=== PATIENT | female | born 1935 | race Caucasian/White ===

== ENCOUNTER 2016-09-30 15:09 | Inpatient (IN) | payer MEDICARE, OTHER ==
[~2016-09-30] VITALS: Ht 165.1 cm; Wt 67.1 kg
[~2016-09-30 15:09] MED LIST: ALBUT2 INH; AMLO10TA4 PO; CARV3.12 PO; DOCU-270 PO; FLUT16SP2 NS; FLUT1DIS5 IH; IPRA0.2S49 IH; LORA10CA PO; MIDO5TAB PO; MULT1CAP34 PO; OMEP20CA4 PO
[2016-09-30] MEDS ORDERED: WATER FOR INJECTION,STERILE 10 ML ONE (16:05)
[2016-09-30] MEDS ORDERED: OLANZAPINE 10 MG VIAL IM ONE ×2 (16:05→16:30)
[2016-09-30 16:40] LABS: BASOPHILS # (AUTO) 0.1 /CMM (0.0-0.2); BASOPHILS % (AUTO) 0.7 % (0.0-2.0); DIFF TOTAL % 100 %; EOSINOPHILS # (AUTO) 0.7 /CMM (0.0-0.7); EOSINOPHILS % (AUTO) 5.8 % (0.0-6.0); HEMATOCRIT 37 % (33-45); LYMPHOCYTES # (AUTO) 3.1 /CMM (0.8-4.8); LYMPHOCYTES % (AUTO) 25.7 % (20.0-44.0); MEAN CORPUSCULAR HEMOGLOBIN 29 PG (26.0-33.0); MEAN CORPUSCULAR HGB CONC 32 g/dl (31.0-36.0); MEAN CORPUSCULAR VOLUME 89 fL (82-100); MONOCYTES # (AUTO) 0.9 /CMM (0.1-1.30); MONOCYTES % (AUTO) 7.7 % (2.0-12.0); NEUTROPHILS # (AUTO) 7.4 /CMM (1.8-8.9); NEUTROPHILS % (AUTO) 60.1 % (43.0-81.0); PLATELET COUNT (AUTO) 372 /CMM (150-450); RED BLOOD CELL COUNT(AUTO) 4.18 MIL/uL (4.0-5.2); WHITE BLOOD COUNT (AUTO) 12.2 K/uL (4.3-11.0)
[2016-09-30 16:48] LABS: ACETAMINOPHEN 2 ug/ml (10-30); ALANINE AMINOTRANSFERASE 17 U/L (12-78); ALBUMIN 3.1 g/dL (3.4-5.0); ANION GAP 14 (5-14); ASPARTATE AMINOTRANSFERASE 13 U/L (15-37); BILIRUBIN,DIRECT 0.1 mg/dL (0.0-0.2); BILIRUBIN,TOTAL 0.2 mg/dL (0.2-1.0); CALCIUM, SERUM 9.3 mg/dL (8.5-10.1); CARBON DIOXIDE 25 mmol/L (21-32); CHLORIDE 109 mmol/L (98-107); CREATININE 2.1 mg/dL (0.6-1.3); GLUCOSE 107 mg/dL (74-106); INDIRECT BILIRUBIN 0.1 mg/dL (0.0-1.1); POTASSIUM 3.9 mmol/L (3.5-5.1); SODIUM SERUM 144 mmol/L (136-145); UREA NITROGEN, BLOOD 23 mg/dL (7-18)
[2016-09-30 16:50] LABS: SALICYLATE 1.3 mg/dL (2.8-20.0)
[2016-09-30 17:00] LABS: KETONES,URINE Trace (NEGATIVE); LEUKOCYTE ESTERASE ,URINE Large (NEGATIVE); PH,URINE 5.5 (5.0-8.0)
[2016-09-30 17:04] LABS: ADD UA MICROSCOPIC YES
[2016-09-30 17:19] LABS: CANNABINOID, URINE NEGATIVE (NEGATIVE); PHENCYCLIDINE SCREEN,URINE NEGATIVE (NEGATIVE)
[2016-09-30] MEDS ORDERED: LORAZEPAM INJ 2 MG/ML VIAL ONE (17:28)
[2016-09-30 17:29] LABS: ADD URINE CULTURE YES; WBC,URINE TOO NUMEROUS TO COUN /HPF (0-3)
[2016-09-30] MEDS ORDERED: LORAZEPAM INJ 2 MG/ML VIAL IV ONE (17:30)
[2016-09-30] MEDS ORDERED: SENN8.6T6 PO (18:02)
[2016-09-30] MEDS ORDERED: POTA10TA15 PO (18:02)
[2016-09-30] MEDS ORDERED: ECON15CR2 TP (18:02)
[2016-09-30] MEDS ORDERED: MAG30ORA PO (18:02)
[2016-09-30] MEDS ORDERED: MULT-659 PO (18:02)
[2016-09-30] MEDS ORDERED: LEVO25TA9 PO (18:02)
[2016-09-30] MEDS ORDERED: SIMV20TA6 PO (18:02)
[2016-09-30] MEDS ORDERED: CALC-108 PO (18:02)
[2016-09-30] MEDS ORDERED: NITR0.4T6 SL (18:02)
[2016-09-30] MEDS ORDERED: ASCO500T9 PO (18:02)
[2016-09-30] MEDS ORDERED: MELA3TAB PO (18:02)
[2016-09-30] MEDS ORDERED: ACET-868 PO (18:02)
[2016-09-30] MEDS ORDERED: LORA0.5T PO (18:02)
[2016-09-30] MEDS ORDERED: BISA10SU8 RC (18:02)
[2016-09-30] MEDS ORDERED: NA P133E RC (18:02)
[2016-09-30] MEDS ORDERED: POLY15DR57 EACHEYE (18:02)
[2016-09-30] MEDS ORDERED: CLON0.1T PO (18:02)
[2016-09-30] MEDS ORDERED: PARO10TA26 PO (18:02)
[2016-09-30] MEDS ORDERED: ACET-2605 PO ×2 (18:02)
[2016-09-30] MEDS ORDERED: MAGN400O6 PO (18:02)
[2016-09-30] MEDS ORDERED: LEVOFLOXACIN (500MG) 500 MG TABLET ONE (18:57)
[2016-09-30] MEDS: LEVOFLOXACIN (500MG) 500 MG TABLET PO SCH ×2 (19:00→22:38)
[2016-09-30] MEDS ORDERED: LEVOFLOXACIN 500 MG /D5W 100ML 500 MG/100 ML PIGGYBACK IV ONE (19:00)
[2016-09-30 19:45] VITALS: BP 100/53
[2016-09-30] MEDS ORDERED: ACETAMINOPHEN 325 MG TABLET PO PRN ×2 (21:00→21:30)
[2016-09-30] MEDS ORDERED: NITROGLYCERIN 0.4 MG/TAB BOTTLE SL PRN (21:00)
[2016-09-30] MEDS ORDERED: MAGNESIUM HYDROXIDE 30 ML UDC PO PRN ×2 (21:00→21:30)
[2016-09-30] MEDS ORDERED: CLONIDINE HCL 0.1 MG TABLET PO PRN (21:00)
[2016-09-30] MEDS ORDERED: NA PHOS,M-B/NA PHOS,DI-BA 1 EA ENEMA RC PRN (21:00)
[2016-09-30] MEDS ORDERED: BISACODYL SUPP (10 MG) 10 MG/SUPP.RECT SUPP.RECT RC PRN (21:00)
[2016-09-30] MEDS ORDERED: ACETAMINOPHEN ES 500 MG TABLET PO SCH ×2 (21:00)
[2016-09-30] MEDS ORDERED: MAG HYDROX/AL HYDROX/SIMETH 30 ML UDC PO PRN ×2 (21:00→21:30)
[2016-09-30] MEDS ORDERED: HOME MED MISCELLANEOUS PO SCH (22:00)
[2016-09-30] MEDS: SENNOSIDES 8.6 MG TABLET PO SCH (22:39)
[2016-09-30] MEDS: SIMVASTATIN 20 MG TABLET PO SCH (22:39)
[2016-10-01 07:51] LABS: BASOPHILS # (AUTO) 0.1 /CMM (0.0-0.2); BASOPHILS % (AUTO) 0.5 % (0.0-2.0); DIFF TOTAL % 100 %; EOSINOPHILS # (AUTO) 0.8 /CMM (0.0-0.7); HEMATOCRIT 35 % (33-45); HEMOGLOBIN 11.3 g/dL (11.5-14.8); LYMPHOCYTES # (AUTO) 2.5 /CMM (0.8-4.8); LYMPHOCYTES % (AUTO) 22.6 % (20.0-44.0); MEAN CORPUSCULAR HEMOGLOBIN 29 PG (26.0-33.0); MEAN CORPUSCULAR HGB CONC 32 g/dl (31.0-36.0); MEAN CORPUSCULAR VOLUME 90 fL (82-100); MONOCYTES # (AUTO) 0.8 /CMM (0.1-1.30); MONOCYTES % (AUTO) 7.5 % (2.0-12.0); NEUTROPHILS % (AUTO) 62.4 % (43.0-81.0); PLATELET COUNT (AUTO) 311 /CMM (150-450); RED BLOOD CELL COUNT(AUTO) 3.87 MIL/uL (4.0-5.2); WHITE BLOOD COUNT (AUTO) 11.2 K/uL (4.3-11.0)
[2016-10-01 08:00] VITALS: BP 150/90
[2016-10-01 08:12] LABS: ALBUMIN 2.6 g/dL (3.4-5.0); BILIRUBIN,TOTAL 0.2 mg/dL (0.2-1.0); CALCIUM, SERUM 9.3 mg/dL (8.5-10.1); CREATININE 2.1 mg/dL (0.6-1.3); POTASSIUM 4.1 mmol/L (3.5-5.1); TOTAL PROTEIN, SERUM 6.2 g/dL (6.4-8.2)
[2016-10-01] MEDS: LEVOTHYROXINE SODIUM 25 MCG TABLET PO SCH (08:39)
[2016-10-01] MEDS ORDERED: FLUTICASONE/SALMETEROL DISKUS IH SCH (09:00)
[2016-10-01] MEDS: ECONAZOLE NITRATE 15 GM TUBE TP SCH (09:00)
[2016-10-01] MEDS: MIDODRINE HCL (5MG) 5 MG TABLET PO SCH ×2 (09:18→17:10)
[2016-10-01] MEDS: AMLODIPINE BESYLATE 10 MG TABLET PO SCH (09:18)
[2016-10-01] MEDS: MULTIVIT, IRON, MIN NO. 8, FA 1 TAB TABLET PO SCH (09:18)
[2016-10-01] MEDS: DOCUSATE SODIUM 100 MG CAPSULE PO SCH ×2 (09:18→17:10)
[2016-10-01] MEDS: CARVEDILOL 3.125 MG TABLET PO SCH ×2 (09:18→17:10)
[2016-10-01] MEDS: LORATADINE 10 MG TABLET PO SCH (09:18)
[2016-10-01] MEDS: POTASSIUM CHLORIDE 10 MEQ TABLET.SA PO SCH (09:18)
[2016-10-01] MEDS: ASCORBIC ACID 500 MG TABLET PO SCH (09:18)
[2016-10-01] MEDS: PANTOPRAZOLE 40 MG TABLET.DR PO SCH (09:18)
[2016-10-01] MEDS: POLYVINYL ALCOHOL 15 ML BOTTLE EACHEYE SCH ×2 (09:24→17:11)
[2016-10-01] MEDS: FLUTICASONE/SALMETEROL DISKUS IH SCH ×2 (09:24→17:11)
[2016-10-01] MEDS ORDERED: AMOXICILLIN TRIHYDRATE 500 MG CAPSULE PO SCH (13:00)
[2016-10-01] MEDS: ACETAMINOPHEN ES 500 MG TABLET PO PRN ×2 (13:31→21:56)
[2016-10-01] MEDS: CALCIUM CARB 600MG /VIT D 1 EACH TABLET PO SCH (13:31)
[2016-10-01] MEDS: FLUTICASONE PROPIONATE 16 GM BOTTLE NS SCH (13:31)
[2016-10-01] MEDS: AMOXICILLIN TRIHYDRATE 250 MG CAPSULE PO SCH ×2 (14:57→22:12)
[2016-10-01 16:00] VITALS: BP 115/54
[2016-10-01] MEDS: DIVALPROEX SODIUM 125 MG CAP.SPRINK PO SCH (17:09)
[2016-10-01 20:00] VITALS: BP 105/58
[2016-10-01] MEDS: SIMVASTATIN 20 MG TABLET PO SCH (22:10)
[2016-10-01] MEDS: PAROXETINE HCL 10 MG TABLET PO SCH (22:10)
[2016-10-01] MEDS: SENNOSIDES 8.6 MG TABLET PO SCH (22:10)
[2016-10-02] MEDS: AMOXICILLIN TRIHYDRATE 250 MG CAPSULE PO SCH ×3 (05:50→21:00)
[2016-10-02] MEDS: ACETAMINOPHEN ES 500 MG TABLET PO PRN (05:50)
[2016-10-02 08:00] VITALS: BP 130/92
[2016-10-02] MEDS: CARVEDILOL 3.125 MG TABLET PO SCH ×2 (08:08→17:23)
[2016-10-02] MEDS: MIDODRINE HCL (5MG) 5 MG TABLET PO SCH ×2 (08:08→17:23)
[2016-10-02] MEDS: ASCORBIC ACID 500 MG TABLET PO SCH (08:08)
[2016-10-02] MEDS: MULTIVIT, IRON, MIN NO. 8, FA 1 TAB TABLET PO SCH (08:08)
[2016-10-02] MEDS: AMLODIPINE BESYLATE 10 MG TABLET PO SCH (08:09)
[2016-10-02] MEDS: LORATADINE 10 MG TABLET PO SCH (08:09)
[2016-10-02] MEDS: ECONAZOLE NITRATE 15 GM TUBE TP SCH (08:09)
[2016-10-02] MEDS: POTASSIUM CHLORIDE 10 MEQ TABLET.SA PO SCH (08:09)
[2016-10-02] MEDS: DIVALPROEX SODIUM 125 MG CAP.SPRINK PO SCH ×3 (08:09→20:13)
[2016-10-02] MEDS: PANTOPRAZOLE 40 MG TABLET.DR PO SCH (08:09)
[2016-10-02] MEDS: DOCUSATE SODIUM 100 MG CAPSULE PO SCH ×2 (08:09→17:22)
[2016-10-02] MEDS: LEVOTHYROXINE SODIUM 25 MCG TABLET PO SCH (08:09)
[2016-10-02] MEDS: CALCIUM CARB 600MG /VIT D 1 EACH TABLET PO SCH (08:09)
[2016-10-02] MEDS: FLUTICASONE PROPIONATE 16 GM BOTTLE NS SCH (08:10)
[2016-10-02] MEDS: POLYVINYL ALCOHOL 15 ML BOTTLE EACHEYE SCH ×2 (08:10→17:22)
[2016-10-02] MEDS: FLUTICASONE/SALMETEROL DISKUS IH SCH ×2 (08:10→17:22)
[2016-10-02] MEDS: CLOTRIMAZOLE/BETAMETASONE DIPROPIONATE 15 GM TUBE TP SCH ×2 (12:27→17:22)
[2016-10-02 16:00] VITALS: BP 124/65
[2016-10-02] MEDS: LACTOBACILLUS RHAMNOSUS GG 1 EACH CAP.SPRINK PO SCH (17:22)
[2016-10-02] MEDS: LEVOFLOXACIN (500MG) 500 MG TABLET PO SCH (19:50)
[2016-10-02 20:00] VITALS: BP 148/69
[2016-10-02] MEDS: SIMVASTATIN 20 MG TABLET PO SCH (22:00)
[2016-10-02] MEDS: SENNOSIDES 8.6 MG TABLET PO SCH (22:00)
[2016-10-02] MEDS: PAROXETINE HCL 10 MG TABLET PO SCH (22:00)
[2016-10-03] MEDS: ACETAMINOPHEN ES 500 MG TABLET PO PRN ×2 (03:59→20:29)
[2016-10-03] MEDS: AMOXICILLIN TRIHYDRATE 250 MG CAPSULE PO SCH (05:00)
[2016-10-03 08:00] VITALS: BP 104/63
[2016-10-03] MEDS: POTASSIUM CHLORIDE 10 MEQ TABLET.SA PO SCH (08:08)
[2016-10-03] MEDS: DIVALPROEX SODIUM 125 MG CAP.SPRINK PO SCH (08:08)
[2016-10-03] MEDS: LEVOTHYROXINE SODIUM 25 MCG TABLET PO SCH (08:08)
[2016-10-03] MEDS: PANTOPRAZOLE 40 MG TABLET.DR PO SCH (08:08)
[2016-10-03] MEDS: MULTIVIT, IRON, MIN NO. 8, FA 1 TAB TABLET PO SCH (08:08)
[2016-10-03] MEDS: ASCORBIC ACID 500 MG TABLET PO SCH (08:08)
[2016-10-03] MEDS: LORATADINE 10 MG TABLET PO SCH (08:08)
[2016-10-03] MEDS: CALCIUM CARB 600MG /VIT D 1 EACH TABLET PO SCH (08:08)
[2016-10-03] MEDS: DOCUSATE SODIUM 100 MG CAPSULE PO SCH ×2 (08:09→16:13)
[2016-10-03] MEDS: LACTOBACILLUS RHAMNOSUS GG 1 EACH CAP.SPRINK PO SCH ×2 (08:09→16:12)
[2016-10-03] MEDS: AMLODIPINE BESYLATE 10 MG TABLET PO SCH (08:09)
[2016-10-03] MEDS: CARVEDILOL 3.125 MG TABLET PO SCH ×2 (08:10→16:13)
[2016-10-03] MEDS: MIDODRINE HCL (5MG) 5 MG TABLET PO SCH ×2 (08:11→16:14)
[2016-10-03] MEDS: ECONAZOLE NITRATE 15 GM TUBE TP SCH (08:15)
[2016-10-03] MEDS: CLOTRIMAZOLE/BETAMETASONE DIPROPIONATE 15 GM TUBE TP SCH ×2 (08:15→17:48)
[2016-10-03] MEDS: FLUTICASONE PROPIONATE 16 GM BOTTLE NS SCH (08:41)
[2016-10-03] MEDS: POLYVINYL ALCOHOL 15 ML BOTTLE EACHEYE SCH ×2 (08:41→17:47)
[2016-10-03] MEDS: FLUTICASONE/SALMETEROL DISKUS IH SCH ×2 (08:41→17:47)
[2016-10-03] MEDS: LORAZEPAM 0.5 MG TABLET PO PRN (15:14)
[2016-10-03 16:00] VITALS: BP 140/62
[2016-10-03 19:44] VITALS: BP 99/61
[2016-10-03] MEDS: LEVOFLOXACIN (500MG) 500 MG TABLET PO SCH (19:52)
[2016-10-03] MEDS: PAROXETINE HCL 10 MG TABLET PO SCH (20:27)
[2016-10-03] MEDS: SIMVASTATIN 20 MG TABLET PO SCH (20:28)
[2016-10-03] MEDS: SENNOSIDES 8.6 MG TABLET PO SCH (20:28)
[2016-10-03] MEDS: TEMAZEPAM 7.5 MG CAPSULE PO PRN (20:29)
[2016-10-03] MEDS ORDERED: DIVALPROEX SODIUM 125 MG TABLET.DR PO SCH (21:00)
[2016-10-04 08:00] VITALS: BP 119/71
[2016-10-04 08:21] LABS: BASOPHILS # (AUTO) 0.1 /CMM (0.0-0.2); BASOPHILS % (AUTO) 0.4 % (0.0-2.0); DIFF TOTAL % 100 %; EOSINOPHILS # (AUTO) 0.6 /CMM (0.0-0.7); EOSINOPHILS % (AUTO) 4.5 % (0.0-6.0); HEMATOCRIT 37 % (33-45); HEMOGLOBIN 11.9 g/dL (11.5-14.8); LYMPHOCYTES # (AUTO) 1.9 /CMM (0.8-4.8); MEAN CORPUSCULAR HEMOGLOBIN 29 PG (26.0-33.0); MEAN CORPUSCULAR HGB CONC 32 g/dl (31.0-36.0); MEAN CORPUSCULAR VOLUME 89 fL (82-100); MONOCYTES % (AUTO) 7.6 % (2.0-12.0); NEUTROPHILS # (AUTO) 9.7 /CMM (1.8-8.9); NEUTROPHILS % (AUTO) 73.5 % (43.0-81.0); PLATELET COUNT (AUTO) 302 /CMM (150-450); RED BLOOD CELL COUNT(AUTO) 4.15 MIL/uL (4.0-5.2); WHITE BLOOD COUNT (AUTO) 13.2 K/uL (4.3-11.0)
[2016-10-04 08:31] LABS: ALBUMIN 3.1 g/dL (3.4-5.0); BILIRUBIN,TOTAL 0.3 mg/dL (0.2-1.0); CALCIUM, SERUM 9.8 mg/dL (8.5-10.1); CREATININE 2.2 mg/dL (0.6-1.3); POTASSIUM 3.6 mmol/L (3.5-5.1); TOTAL PROTEIN, SERUM 7.4 g/dL (6.4-8.2)
[2016-10-04] MEDS: POLYVINYL ALCOHOL 15 ML BOTTLE EACHEYE SCH ×2 (08:31→16:27)
[2016-10-04] MEDS: FLUTICASONE PROPIONATE 16 GM BOTTLE NS SCH (08:31)
[2016-10-04] MEDS: FLUTICASONE/SALMETEROL DISKUS IH SCH ×2 (08:31→16:28)
[2016-10-04] MEDS: POTASSIUM CHLORIDE 10 MEQ TABLET.SA PO SCH (08:32)
[2016-10-04] MEDS: LACTOBACILLUS RHAMNOSUS GG 1 EACH CAP.SPRINK PO SCH ×2 (08:32→16:16)
[2016-10-04] MEDS: ASCORBIC ACID 500 MG TABLET PO SCH (08:32)
[2016-10-04] MEDS: LEVOTHYROXINE SODIUM 25 MCG TABLET PO SCH (08:32)
[2016-10-04] MEDS: DIVALPROEX SODIUM 125 MG CAP.SPRINK PO SCH ×2 (08:32→20:07)
[2016-10-04] MEDS: ECONAZOLE NITRATE 15 GM TUBE TP SCH (08:32)
[2016-10-04] MEDS: CLOTRIMAZOLE/BETAMETASONE DIPROPIONATE 15 GM TUBE TP SCH ×2 (08:32→16:28)
[2016-10-04] MEDS: MULTIVIT, IRON, MIN NO. 8, FA 1 TAB TABLET PO SCH (08:32)
[2016-10-04] MEDS: DOCUSATE SODIUM 100 MG CAPSULE PO SCH ×2 (08:32→16:16)
[2016-10-04] MEDS: LORATADINE 10 MG TABLET PO SCH (08:33)
[2016-10-04] MEDS: PANTOPRAZOLE 40 MG TABLET.DR PO SCH (08:33)
[2016-10-04] MEDS: CALCIUM CARB 600MG /VIT D 1 EACH TABLET PO SCH (08:33)
[2016-10-04] MEDS: CARVEDILOL 3.125 MG TABLET PO SCH ×2 (08:34→16:16)
[2016-10-04] MEDS: AMLODIPINE BESYLATE 10 MG TABLET PO SCH (08:36)
[2016-10-04] MEDS: MIDODRINE HCL (5MG) 5 MG TABLET PO SCH ×2 (08:36→16:16)
[2016-10-04] MEDS: LORAZEPAM 0.5 MG TABLET PO PRN (10:56)
[2016-10-04 16:18] VITALS: BP 131/61
[2016-10-04 20:00] VITALS: BP 128/81
[2016-10-04] MEDS: LEVOFLOXACIN (500MG) 500 MG TABLET PO SCH (20:06)
[2016-10-04] MEDS: TEMAZEPAM 7.5 MG CAPSULE PO PRN (21:11)
[2016-10-04] MEDS: PAROXETINE HCL 10 MG TABLET PO SCH (21:12)
[2016-10-04] MEDS: SENNOSIDES 8.6 MG TABLET PO SCH (21:12)
[2016-10-04] MEDS: SIMVASTATIN 20 MG TABLET PO SCH (21:12)
[2016-10-05 08:00] VITALS: BP 131/71
[2016-10-05] MEDS: PANTOPRAZOLE 40 MG TABLET.DR PO SCH (08:43)
[2016-10-05] MEDS: LORATADINE 10 MG TABLET PO SCH (08:43)
[2016-10-05] MEDS: MULTIVIT, IRON, MIN NO. 8, FA 1 TAB TABLET PO SCH (08:43)
[2016-10-05] MEDS: ASCORBIC ACID 500 MG TABLET PO SCH (08:43)
[2016-10-05] MEDS: LEVOTHYROXINE SODIUM 25 MCG TABLET PO SCH (08:43)
[2016-10-05] MEDS: CALCIUM CARB 600MG /VIT D 1 EACH TABLET PO SCH (08:43)
[2016-10-05] MEDS: POTASSIUM CHLORIDE 10 MEQ TABLET.SA PO SCH (08:43)
[2016-10-05] MEDS: DOCUSATE SODIUM 100 MG CAPSULE PO SCH ×2 (08:43→17:44)
[2016-10-05] MEDS: CARVEDILOL 3.125 MG TABLET PO SCH ×2 (08:44→17:45)
[2016-10-05] MEDS: AMLODIPINE BESYLATE 10 MG TABLET PO SCH (08:44)
[2016-10-05] MEDS: DIVALPROEX SODIUM 125 MG CAP.SPRINK PO SCH ×3 (08:44→20:09)
[2016-10-05] MEDS: MIDODRINE HCL (5MG) 5 MG TABLET PO SCH ×2 (08:45→17:44)
[2016-10-05] MEDS: FLUTICASONE/SALMETEROL DISKUS IH SCH ×2 (08:48→17:43)
[2016-10-05] MEDS: FLUTICASONE PROPIONATE 16 GM BOTTLE NS SCH (08:50)
[2016-10-05] MEDS: POLYVINYL ALCOHOL 15 ML BOTTLE EACHEYE SCH ×2 (08:51→17:44)
[2016-10-05] MEDS: LACTOBACILLUS RHAMNOSUS GG 1 EACH CAP.SPRINK PO SCH ×2 (08:59→17:45)
[2016-10-05] MEDS: CLOTRIMAZOLE/BETAMETASONE DIPROPIONATE 15 GM TUBE TP SCH ×2 (12:37→17:46)
[2016-10-05] MEDS: ECONAZOLE NITRATE 15 GM TUBE TP SCH (12:38)
[2016-10-05 16:00] VITALS: BP 123/59
[2016-10-05] MEDS: LORAZEPAM 0.5 MG TABLET PO PRN (17:55)
[2016-10-05] MEDS: LEVOFLOXACIN (500MG) 500 MG TABLET PO SCH (19:45)
[2016-10-05 20:16] VITALS: BP 119/63
[2016-10-05] MEDS: SIMVASTATIN 20 MG TABLET PO SCH (22:00)
[2016-10-05] MEDS: PAROXETINE HCL 10 MG TABLET PO SCH (22:00)
[2016-10-05] MEDS: SENNOSIDES 8.6 MG TABLET PO SCH (22:00)
[2016-10-06 08:09] VITALS: BP 121/63
[2016-10-06] MEDS: FLUTICASONE PROPIONATE 16 GM BOTTLE NS SCH (08:15)
[2016-10-06] MEDS: POLYVINYL ALCOHOL 15 ML BOTTLE EACHEYE SCH ×2 (08:15→16:26)
[2016-10-06] MEDS: FLUTICASONE/SALMETEROL DISKUS IH SCH ×2 (08:15→16:26)
[2016-10-06] MEDS: POTASSIUM CHLORIDE 10 MEQ TABLET.SA PO SCH (08:16)
[2016-10-06] MEDS: MULTIVIT, IRON, MIN NO. 8, FA 1 TAB TABLET PO SCH (08:16)
[2016-10-06] MEDS: LACTOBACILLUS RHAMNOSUS GG 1 EACH CAP.SPRINK PO SCH ×2 (08:16→16:26)
[2016-10-06] MEDS: ASCORBIC ACID 500 MG TABLET PO SCH (08:16)
[2016-10-06] MEDS: LEVOTHYROXINE SODIUM 25 MCG TABLET PO SCH (08:16)
[2016-10-06] MEDS: LORATADINE 10 MG TABLET PO SCH (08:16)
[2016-10-06] MEDS: DOCUSATE SODIUM 100 MG CAPSULE PO SCH ×2 (08:16→16:27)
[2016-10-06] MEDS: CALCIUM CARB 600MG /VIT D 1 EACH TABLET PO SCH (08:16)
[2016-10-06] MEDS: PANTOPRAZOLE 40 MG TABLET.DR PO SCH (08:16)
[2016-10-06] MEDS: DIVALPROEX SODIUM 125 MG CAP.SPRINK PO SCH ×3 (08:17→20:17)
[2016-10-06] MEDS: MIDODRINE HCL (5MG) 5 MG TABLET PO SCH ×2 (08:17→17:00)
[2016-10-06] MEDS: CARVEDILOL 3.125 MG TABLET PO SCH ×2 (08:25→16:27)
[2016-10-06] MEDS: AMLODIPINE BESYLATE 10 MG TABLET PO SCH (08:25)
[2016-10-06] MEDS: ECONAZOLE NITRATE 15 GM TUBE TP SCH (08:33)
[2016-10-06] MEDS: CLOTRIMAZOLE/BETAMETASONE DIPROPIONATE 15 GM TUBE TP SCH ×2 (08:33→16:28)
[2016-10-06 16:00] VITALS: BP 135/65
[2016-10-06] MEDS: LORAZEPAM 0.5 MG TABLET PO PRN (19:53)
[2016-10-06 20:01] VITALS: BP 122/63
[2016-10-06] MEDS: LEVOFLOXACIN (500MG) 500 MG TABLET PO SCH (20:17)
[2016-10-06] MEDS: SIMVASTATIN 20 MG TABLET PO SCH (20:17)
[2016-10-06] MEDS: PAROXETINE HCL 10 MG TABLET PO SCH (20:18)
[2016-10-06] MEDS: SENNOSIDES 8.6 MG TABLET PO SCH (20:18)
[2016-10-07] MEDS: CARVEDILOL 3.125 MG TABLET PO SCH ×2 (08:07→17:00)
[2016-10-07] MEDS: AMLODIPINE BESYLATE 10 MG TABLET PO SCH (08:20)
[2016-10-07 09:09] VITALS: BP 100/54
[2016-10-07] MEDS: DIVALPROEX SODIUM 125 MG CAP.SPRINK PO SCH (10:37)
[2016-10-07] MEDS: ASCORBIC ACID 500 MG TABLET PO SCH (10:37)
[2016-10-07] MEDS: DOCUSATE SODIUM 100 MG CAPSULE PO SCH ×2 (10:37→17:00)
[2016-10-07] MEDS: CALCIUM CARB 600MG /VIT D 1 EACH TABLET PO SCH (10:37)
[2016-10-07] MEDS: POTASSIUM CHLORIDE 10 MEQ TABLET.SA PO SCH (10:37)
[2016-10-07] MEDS: LEVOTHYROXINE SODIUM 25 MCG TABLET PO SCH (10:39)
[2016-10-07] MEDS: LORATADINE 10 MG TABLET PO SCH (10:39)
[2016-10-07] MEDS: MIDODRINE HCL (5MG) 5 MG TABLET PO SCH ×2 (10:39→17:00)
[2016-10-07] MEDS: LACTOBACILLUS RHAMNOSUS GG 1 EACH CAP.SPRINK PO SCH ×2 (10:39→17:00)
[2016-10-07] MEDS: PANTOPRAZOLE 40 MG TABLET.DR PO SCH (10:39)
[2016-10-07] MEDS: MULTIVIT, IRON, MIN NO. 8, FA 1 TAB TABLET PO SCH (10:39)
[2016-10-07] MEDS: FLUTICASONE/SALMETEROL DISKUS IH SCH ×2 (12:42→17:01)
[2016-10-07] MEDS: POLYVINYL ALCOHOL 15 ML BOTTLE EACHEYE SCH ×2 (12:46→17:01)
[2016-10-07] MEDS: FLUTICASONE PROPIONATE 16 GM BOTTLE NS SCH (12:47)
[2016-10-07] MEDS: ECONAZOLE NITRATE 15 GM TUBE TP SCH ×2 (12:48→17:01)
[2016-10-07] MEDS: CLOTRIMAZOLE/BETAMETASONE DIPROPIONATE 15 GM TUBE TP SCH ×2 (12:48→17:01)
[2016-10-07 16:00] VITALS: BP 115/62
[2016-10-07 17:00] VITALS: BP 115/62
[2016-10-07] MEDS ORDERED: DIVALPROEX SODIUM 125 MG CAP.SPRINK PO SCH (22:00)
== END 2016-10-07 18:00 | DRG 885 ==
LOC: ER 15:12 → GPS 18:46
PROVIDERS: ADMIT Psychiatry & Neurology Psychiatry; ATTEND Legal Medicine
DX: F39 Unspecified mood [affective] disorder (principal); N17.9 Acute kidney failure, unspecified; I11.0 Hypertensive heart disease with heart failure; F03.91 Unspecified dementia, unspecified severity, with behavioral disturbance; N39.0 Urinary tract infection, site not specified; F29 Unspecified psychosis not due to a substance or known physiological condition; F41.9 Anxiety disorder, unspecified; K21.9 Gastro-esophageal reflux disease without esophagitis; I50.9 Heart failure, unspecified; F32.9 Major depressive disorder, single episode, unspecified; E78.5 Hyperlipidemia, unspecified; E03.9 Hypothyroidism, unspecified; L30.9 Dermatitis, unspecified; M19.90 Unspecified osteoarthritis, unspecified site
CPT/HCPCS: 36415; 80048-TC; 80053-TC; 80061-TC; 80076-TC; 80164-TC; 80305; 81000-TC; 85025-TC; 87081-TC; 87086-TC; 92611-TC; 97001-TC; A4606; G0480; G6039-TC; J1956; J2060; J3490; Z7610

== ENCOUNTER 2017-02-24 18:57 | Inpatient (IN) | payer MEDICARE, OTHER ==
[~2017-02-24] VITALS: Ht 182.9 cm; Wt 67.1 kg
[~2017-02-24 18:57] MED LIST changes: +ACET-2605 PO; +ACET-868 PO; -ALBUT2 INH; +ASCO500T9 PO; +BISA10SU8 RC; +CALC-108 PO; +CLON0.1T PO; +ECON15CR2 TP; -IPRA0.2S49 IH; +LEVO25TA9 PO; +MAG30ORA PO; +MAGN400O6 PO; +MELA3TAB PO; +MULT-659 PO; -MULT1CAP34 PO; +NA P133E RC; +NITR0.4T6 SL; +POLY15DR57 EACHEYE; +POTA10TA15 PO; +SENN8.6T6 PO; +SIMV20TA6 PO
--- NOTE | 2017-02-24 19:08 | NUR ---
ANDREE FROM [facility] DT ABNORMAL LAB- HIGH WBC. PATIENT RECEIVED AWAKE. HOWEVER CONFUSED. APPEARS IN NO APPARENT DISTRESS. RESPIRATION EVEN AND UNLABORED. SKIN IS WARM TO TOUCH AND NON DIAPHORETIC. PATIENT IS AFEBRILE. VSS
--- NOTE | 2017-02-24 19:23 | NUR ---
BLOOD DRAWN BY INDUSTRIAL WASTE TREATMENT TECHNICIAN.
[2017-02-24 19:28] LABS: BASOPHILS % (AUTO) 0.1 % (0.0-2.0); EOSINOPHILS # (AUTO) 0.1 /CMM (0.0-0.7); EOSINOPHILS % (AUTO) 0.2 % (0.0-6.0); HEMATOCRIT 30 % (33-45); HEMOGLOBIN 10.3 g/dL (11.5-14.8); LYMPHOCYTES # (AUTO) 2.1 /CMM (0.8-4.8); LYMPHOCYTES % (AUTO) 5.5 % (20.0-44.0); MEAN CORPUSCULAR HEMOGLOBIN 31 PG (26.0-33.0); MEAN CORPUSCULAR HGB CONC 35 g/dl (31.0-36.0); MEAN CORPUSCULAR VOLUME 89 fL (82-100); MONOCYTES # (AUTO) 2.1 /CMM (0.1-1.30); MONOCYTES % (AUTO) 5.7 % (2.0-12.0); NEUTROPHILS # (AUTO) 33.2 /CMM (1.8-8.9); NEUTROPHILS % (AUTO) 88.5 % (43.0-81.0); PLATELET COUNT (AUTO) 542 /CMM (150-450); RDW COEFFICIENT OF VARIATION 13.7 (11.5-15.0); RED BLOOD CELL COUNT(AUTO) 3.36 MIL/uL (4.0-5.2)
[2017-02-24 19:33] LABS: WHITE BLOOD COUNT (AUTO) 37.5 K/uL (4.3-11.0)
[2017-02-24 19:54] LABS: PROTHROMBIN TIME 10.4 SECS (9.5-12.7)
[2017-02-24 19:57] LABS: ALANINE AMINOTRANSFERASE < 6 U/L (12-78); ALKALINE PHOSPHATASE 110 U/L (46-116); ASPARTATE AMINOTRANSFERASE 9 U/L (15-37); BILIRUBIN,DIRECT 0.3 mg/dL (0.0-0.2); BILIRUBIN,TOTAL 0.4 mg/dL (0.2-1.0); CALCIUM, SERUM 9.2 mg/dL (8.5-10.1); CARBON DIOXIDE 24 mmol/L (21-32); CHLORIDE 105 mmol/L (98-107); CREATININE 1.9 mg/dL (0.6-1.3); GLUCOSE 128 mg/dL (74-106); POTASSIUM 4.3 mmol/L (3.5-5.1); SODIUM SERUM 137 mmol/L (136-145); TOTAL PROTEIN, SERUM 5.7 g/dL (6.4-8.2); UREA NITROGEN, BLOOD 48 mg/dL (7-18)
[2017-02-24 19:59] LABS: ALBUMIN 1.2 g/dL (3.4-5.0)
[2017-02-24 20:04] LABS: TROPONIN I 0.026 ng/mL (0.00-0.056)
--- NOTE | 2017-02-24 20:11 | NUR ---
I&O CATH DONE, URINE SAMPLE COLLECTED AND SENT TO LAB.
[2017-02-24 20:23] LABS: APPEARANCE,URINE Cloudy (CLEAR); BILIRUBIN,URINE Negative (NEGATIVE); BLOOD, URINE Moderate Ery/uL (NEGATIVE); COLOR,URINE Yellow (YELLOW); KETONES,URINE Negative (NEGATIVE); LEUKOCYTE ESTERASE ,URINE Large (NEGATIVE); NITRITE, URINE Negative (NEGATIVE); PH,URINE 5.5 (5.0-8.0); PROTEIN,URINE 30 mg/dl (NEGATIVE); UGLUCOSE Negative (NEGATIVE)
--- NOTE | 2017-02-24 20:23 | NUR ---
CALLED DR MUNGUIA'S PHONE SERVICE AND THE VOICEMAIL NOTIFIED ME HE IS NOT IMMIGRATION INVESTIGATOR. VOICEMAIL ALSO INSTRUCTED ME TO ADMIT TO PANEL.
[2017-02-24 20:30] LABS: BAND % (MANUAL) 54 % (0.0-5.0); LYMPHOCYTES % (MANUAL) 8 % (16-48); METAMYELOCYTES % 5 % (0-0); MONOCYTES % (MANUAL) 6 % (0-11.0); MYELOCYTES % 4 % (0-0); NEUTROPHILS % (MANUAL) 23 (42-76)
[2017-02-24] MEDS ORDERED: CARVEDILOL 3.125 MG TABLET PO ONE (20:30)
[2017-02-24] MEDS ORDERED: IV NS 0.9% 500 ML BAG IV ONE ×2 (20:30→21:30)
[2017-02-24] MEDS ORDERED: PIPERACILLIN /TAZOBACTAM 3.375 G VIAL IV ONE (20:49)
[2017-02-24] MEDS ORDERED: LEVOFLOXACIN 750 MG /D5W 150ML 150 ML IV ONE ×2 (20:49→21:00)
--- NOTE | 2017-02-24 20:56 | NUR ---
TELE 326-2
[2017-02-24 20:58] LABS: BACTERIA,URINE 2+ /HPF (None Seen); SQUAMOUS EPITHELIAL CELL,UR Few /HPF (None Seen); WBC,URINE TOO NUMEROUS TO COUN /HPF (0-3)
[2017-02-24] MEDS ORDERED: PIPERACILLIN /TAZOBACTAM 3.375 G in IV D5W 50 ML IV ONE (21:00)
--- NOTE | 2017-02-24 21:10 | NUR ---
REPORT CALLED TO VEHICLE SERVICE ATTENDANT ANNA. NORIS JEWELL SPOKE TO LIBIA NUÑEZ ACNP REGARIDNG PT ADMISSION. WILL TRANSPORT PT VIA ACLS PROTOCOL.
[2017-02-24] MEDS ORDERED: IV NS 0.9% 1,000 ML IV PRN (21:18)
[2017-02-24] MEDS ORDERED: MAGNESIUM HYDROXIDE 30 ML UDC PO PRN ×2 (21:30→22:30)
[2017-02-24] MEDS ORDERED: ACETAMINOPHEN 325 MG TABLET PO PRN (21:30)
[2017-02-24] MEDS ORDERED: MAG HYDROX/AL HYDROX/SIMETH 30 ML UDC PO PRN ×2 (21:30→22:30)
[2017-02-24] MEDS ORDERED: HYDROCODONE/APAP 5/325MG 1 EACH TABLET PO PRN (21:30)
[2017-02-24] MEDS ORDERED: ONDANSETRON HCL/PF 4 MG/2 ML VIAL IVP PRN (21:30)
--- NOTE | 2017-02-24 21:35 | NUR ---
TELE ADMISSION RECEIVED PT COMING FROM ER VIA GURNEY, PT APPEARS LETHARGIC AND IS CONFUSED DURING INITIAL INTERVIEW, SPORTS ACTIVITIES FOUL JUDGE IN ROOM CHECKING VITAL SIGNS, WILL MONITOR PT CLOSELY.
--- NOTE | 2017-02-24 21:40 | NUR ---
VITAL SIGNS FOR PT INITIAL BP 52/44 ON SECOND ATTEMPT 72/48 WHEN BP CHECKED A THIRD TIME 83/53, O2 SATS 89-90 ON 6L OXYGEN, MD NUÑEZ WILL BE MADE AWAKE AND WILL ASK FOR HIGHER LEVEL OF CARE.
--- NOTE | 2017-02-24 21:50 | NUR ---
SPOKE TO MD NUÑEZ AND HE WOULD LIKE PT TO GO TO ICU, HE ALSO WOULD LIKE 1L OF NS BOLUS GIVEN TO THE PATIENT, CHARGE NURSE MADE AWARE, NURSING PIPE LINE REPAIRER WILL BE CALLED FOR ICU BED.
--- NOTE | 2017-02-24 22:10 | NUR ---
NURSING STRINGED INSTRUMENT REPAIRER ASSIGNED BED 257 IN ICU, REPORT GIVEN TO ICU NURSE, WILL TRANSPORT SHORTLY.
--- NOTE | 2017-02-24 22:15 | NUR ---
CT PELVIS ORDERED STAT, WILL TRANSPORT PT TO CT AND TRANSFER TO ICU AFTER
--- NOTE | 2017-02-24 22:25 | NUR ---
MANAGER CONSUMER: RECEIVED PT TRANSFERRED FROM TELE FLOOR AWAKE AND ORIENTED X2, WT DELAYED SPEECH, ABLE TO FOLLOW SIMPLE COMMANDS. ON 5L 02 VIA NC WT NO ACUTE DISTRESS. NO C/O PAIN. BODY ASSESSMENT DONE WT NO SKIN BREAKDOWN. LEVAQUIN AND 500ML BOLUS INFUSING ON RIGHT AC IV SITE WT NO S/S OF INFILTRATION. SAFETY PRECAUTION NOTED. WILL CONTINUE TO MONITOR.
[2017-02-24 22:29] VITALS: BP 98/52
[2017-02-24] MEDS ORDERED: NITROGLYCERIN 0.4 MG/TAB BOTTLE SL PRN (22:30)
[2017-02-24] MEDS ORDERED: BISACODYL SUPP (10 MG) 10 MG/SUPP.RECT SUPP.RECT RC PRN (22:30)
[2017-02-24] MEDS ORDERED: NA PHOS,M-B/NA PHOS,DI-BA 1 EA ENEMA RC PRN (22:30)
--- NOTE | 2017-02-24 22:35 | NUR ---
PATIENT SAFELY TRANSFERRED UNDER ACLS PROTOCOL, RELEASED CARE TO ICU NURSE.
[2017-02-24] MEDS: LEVOFLOXACIN 750 MG /D5W 150ML 750 MG in PREMIX 1 EA IV SCH (22:45)
[2017-02-24 23:00] VITALS: BP 68/46
[2017-02-24] MEDS ORDERED: IV NS 0.9% 1,000 ML BAG IV ONE (23:00)
[2017-02-24 23:03] VITALS: BP 85/42
[2017-02-24 23:30] VITALS: BP 73/36
[2017-02-24 23:36] VITALS: BP 102/75
--- NOTE | 2017-02-24 23:40 | NUR ---
TELEHEALTH NURSE EDUCATOR: CALLED AND NOTIFIED KARISSA REZA THAT PT'S SBP WAS IN THE 60S-80s DURING THE PAST HOUR. 1L NS BOLUS ALMOST FINISHED. PT WAS ASLEEP AND STIMULATED, WOKE UP AND BP NOW AT 102/75. ASKED IF DANCE PROFESSOR WANTS STANDING ORDER FOR VASOPRESSORS. DANCE PROFESSOR SAID NOT AT THIS TIME, JUST INCREASED NS FROM 75 TO 100ML/HR AND OK TO PLACE F/C. NOTED AND CARRIED OUT.
--- NOTE | 2017-02-24 23:55 | NUR ---
FOOD TRUCK CATERER: SANDOVAL CATHETER INSERTED IN STERILE TECHNIQUE AND TOLERATED FAIRLY. NOTED WT CLOUDY YELLOW URINE. WILL CONTINUE TO MONITOR.
[2017-02-25] VITALS (36 sets, daily range): BP systolic 58–131; BP diastolic 25–111
[2017-02-25] MEDS: IV NS 0.9% 1,000 ML IV PRN ×3 (00:48→23:35)
[2017-02-25 04:44] LABS: HEMATOCRIT 27 % (33-45); HEMOGLOBIN 8.9 g/dL (11.5-14.8); LYMPHOCYTES # (AUTO) 2.1 /CMM (0.8-4.8); LYMPHOCYTES % (AUTO) 6.3 % (20.0-44.0); MEAN CORPUSCULAR HEMOGLOBIN 30 PG (26.0-33.0); MEAN CORPUSCULAR HGB CONC 33 g/dl (31.0-36.0); MEAN CORPUSCULAR VOLUME 91 fL (82-100); MONOCYTES # (AUTO) 2.4 /CMM (0.1-1.30); MONOCYTES % (AUTO) 7.1 % (2.0-12.0); NEUTROPHILS % (AUTO) 86.6 % (43.0-81.0); PLATELET COUNT (AUTO) 397 /CMM (150-450); RDW COEFFICIENT OF VARIATION 14.7 (11.5-15.0); RED BLOOD CELL COUNT(AUTO) 2.96 MIL/uL (4.0-5.2)
[2017-02-25] MEDS ORDERED: PIPERACILLIN /TAZOBACTAM 3.375 G VIAL IV ONE (04:52)
[2017-02-25 04:55] LABS: WHITE BLOOD COUNT (AUTO) 33.5 K/uL (4.3-11.0)
[2017-02-25 04:56] LABS: CALCIUM, SERUM 8.2 mg/dL (8.5-10.1); CARBON DIOXIDE 27 mmol/L (21-32); CHLORIDE 107 mmol/L (98-107); CREATININE 1.5 mg/dL (0.6-1.3); GLUCOSE 89 mg/dL (74-106); PHOSPHORUS 3.5 mg/dL (2.5-4.9); POTASSIUM 3.8 mmol/L (3.5-5.1); SODIUM SERUM 140 mmol/L (136-145); UREA NITROGEN, BLOOD 45 mg/dL (7-18)
[2017-02-25 05:07] LABS: TROPONIN I 0.025 ng/mL (0.00-0.056)
[2017-02-25 05:08] LABS: CHOLESTEROL 76 mg/dL (<200); HDL CHOLESTEROL < 10 mg/dL (40-60); LDL 36 mg/dL (0-99); THYROID STIMULATING HORMONE 2.723 uIU/mL (0.358-3.74); TRIGLYCERIDES 110 mg/dL (30-150)
[2017-02-25] MEDS: PIPERACILLIN /TAZOBACTAM 3.375 G in IV D5W 50 ML IV SCH ×6 (05:11→23:35)
[2017-02-25 05:21] LABS: BAND % (MANUAL) 44 % (0.0-5.0); LYMPHOCYTES % (MANUAL) 5 % (16-48); MONOCYTES % (MANUAL) 1 % (0-11.0); NEUTROPHILS % (MANUAL) 50 (42-76)
--- NOTE | 2017-02-25 05:40 | NUR ---
CORRESPONDENT: LIBIA, VENDETTE CALLED AND UPDATED PT's STATUS. STILL HAS EPISODES OF HYPOTENSION DURING THE SHIFT ESPECIALLY WHILE ASLEEP. HOWEVER, WHEN PT AWAKENS AND BP RECHECKS, SBP GOES BACK TO LOW 90s. ALSO REMINDED VENDETTE OF CRITICALLY LOW ALBUMIN LEVEL UPON ADMISSION/BASELINE LAB. DRAW. VENDETTE SAID HE WILL PLACE ORDERS FOR ALBUMIN. WBC IS NOW 33.5 FROM 37.5.
[2017-02-25] MEDS ORDERED: ALBUMIN 25% 100 ML IV ONE (05:47)
[2017-02-25] MEDS: ALBUMIN 25% 25 GM in PREMIX 1 EA IV SCH ×4 (05:51→23:36)
--- NOTE | 2017-02-25 06:30 | NUR ---
LEAD MEDICAL TECHNOLOGIST: ONGOING INFUSION OF ALBUMIN, SBP IMPROVED IN THE 90s. PT EYES CLOSED, ABLE TO WAKE UP AND VERBALLY RESPONSIVE. REMAINS ON 5L O2 VIA NC WT NO ACUTE DISTRESS, NO C/O PAIN. STILL ON NS AT 100ML/HR. A. FIB CONTROLLED WT BBB ON MONITOR. F/C REMAINED INTACT AND PATENT DRAINING CLOUDY YELLOW URINE. SAFETY PRECAUTION NOTED AT ALL TIMES. WILL ENDORSE TO DAY SHIFT FOR CONTINUITY OF CARE.
[2017-02-25] MEDS ORDERED: FEE PK DOSING 1 MIN EA MC ONE (07:10)
--- NOTE | 2017-02-25 07:30 | NUR ---
ICU/RN: PT RECEIVED, RESTING IN BED, EYES CLOSED, NO DISTRESS NOTED, PT A&OX1, FOLLOWS SOME COMMANDS, CONFUSED. BREATHING EVEN AND UNLABORED ON O2 5L/MIN VIA NC. IVF INFUSING WELL INTO R AC #18. NEW PIV INSERTED R FA #22 WITH GOOD BLOOD RETURN. WILL CONT TO MONITOR PT.
[2017-02-25] MEDS: LEVOTHYROXINE SODIUM 25 MCG TABLET PO SCH (08:10)
--- NOTE | 2017-02-25 08:30 | NUR ---
ICU/RN: DUE MEDS ADMINISTERED; MIDODRINE PO ADMINISTERED - PT NOTED WITH ORTHOSTATIC HYPOTENSION IN 80'S WHEN TURNED AND REPOSITIONED, INCREASES TO SBP 90'S AFTER A FEW MINS. REMAINS AFEBRILE. WILL CONT TO MONITOR PT.
[2017-02-25] MEDS: ASCORBIC ACID 500 MG TABLET PO SCH (08:38)
[2017-02-25] MEDS: DOCUSATE SODIUM 100 MG CAPSULE PO SCH ×2 (08:38→16:48)
[2017-02-25] MEDS: Z GUARD REMEDY 2 OZ OINT TP PRN (08:38)
[2017-02-25] MEDS: POTASSIUM CHLORIDE 10 MEQ TABLET.SA PO SCH (08:38)
[2017-02-25] MEDS: MIDODRINE HCL (5MG) 5 MG TABLET PO SCH ×2 (08:39→16:48)
[2017-02-25] MEDS: VANCOMYCIN 1 GM in IV D5W 250 ML IV SCH (08:39)
[2017-02-25] MEDS ORDERED: ECONAZOLE NITRATE 15 GM TUBE TP SCH (09:00)
[2017-02-25] MEDS: FLUTICASONE PROPIONATE 16 GM BOTTLE NS SCH (09:00)
--- NOTE | 2017-02-25 10:00 | NUR ---
ICU/RN: CALLED RX REGARDING INHALER, OINTMENTS PENDING DELIVERY. STILL AWAITING MEDS.
[2017-02-25] MEDS: POLYVINYL ALCOHOL 15 ML BOTTLE EACHEYE SCH ×2 (11:00→16:51)
[2017-02-25] MEDS: CALCIUM CARB 600MG /VIT D 1 EACH TABLET PO SCH (11:15)
[2017-02-25] MEDS: LORATADINE 10 MG TABLET PO SCH (11:15)
--- NOTE | 2017-02-25 12:18 | NUR ---
ICU/RN: CALLED RX REGARDING 0900 MEDS, 1100 EYEDROPS AND 1200 ALBUMIN. AWAITING DELIVERY
--- NOTE | 2017-02-25 12:45 | NUR ---
ICU/RN: DR ROBLES AT THE BEDSIDE, UPDATED ON PT STATUS, CHELSY BLACK MD, PT BP MARGINAL AND ORTHOSTATIC WITH TURNING AND REPOSITIONING, REMAINS AFEBRILE WITH GOOD URINE OUTPUT. WILL CONT TO MONITOR PT
--- NOTE | 2017-02-25 15:40 | NUR ---
ICU/RN: F/U WITH CENTRAL SUPPLY RE: ALVAROI MATTRESS, PER TECH MAY NOT RECEIVE ORDER FROM VENDORS UNTIL TONIGHT. PATTERN RULER NOTIFIED.
--- NOTE | 2017-02-25 16:20 | NUR ---
ICU/RN: DR TALBERT AT BEDSIDE FOR CARDIAC CONSULT; NOTIFIED OF PT UNCONTROLLED A-FIB, PER MD "I'LL PT IN SOME ORDERS WELL HEPARIN FOR DVT PROPHYLAXIS."
[2017-02-25] MEDS ORDERED: DIGOXIN INJ 0.5 MG/2 ML AMPUL IV ONE (16:30)
--- NOTE | 2017-02-25 16:30 | NUR ---
ICU/RN: DR NESBITT AT BEDSIDE FOR PSYCH CONSULT; UPDATED ON PT STATUS. ORDERS FOR DEPAKOTE LEVEL AND MEDS NOTED AND CARRIED OUT.
[2017-02-25] MEDS: DIVALPROEX SODIUM 250 MG TABLET.DR PO SCH (17:00)
--- NOTE | 2017-02-25 19:12 | NUR ---
ICU/RN: PT REMAINS COMFORTABLE IN BED, NO DISTRESS NOTED, IVF INFUSING WELL. CONTROLLED A-FIB WITH BBB ON MONITOR. CARE ENDORSED TO PM RN FOR KRYSTA.
--- NOTE | 2017-02-25 19:55 | NUR ---
REGULATORY LAW SPECIALIST. INITIAL ASSESSMENT. RECEIVED THE PT REST ON THE BED. PT IS CONFUSED, AWAKE, ALERT, DOES NOT FOLLOW COMMANDS. OXYGEN 5L VIA NASAL CANNULA. SAT 98%. CLEAT BLANKER SHOWING FIB WITH L BBB. IV RT AC 18G,RT FA 22G. IVF NS 100ML/H. FC PATENT. HOB ELEVATED. TURNA ND REPOSITION Q2H. WILL CONTINUE TO MONITOR VITALS.
--- NOTE | 2017-02-25 20:00 | NUR ---
RN OPENING NOTES: REPORT RECEIVED FROM KELIN HATFIELD. RECEIVED PT ON BED AWAKE ALOX1 AND VERBALLY RESPONSIVE. NOTED PATIENT WITH INTERMITTENT SCREAMS AND MOANS, SAYING" IM SCARED." PATIENT IS CONFUSED AND WITH DISORGANIZED THOUGHTS AND VISUAL HALLUCINATIONS SHE WAS DISORIENTED, RESPONDS IN A COMPLETELY DIFFERENT TOPIC AND SAYS SHE CAN SEE "A BOY" WHILE POINTING TO THE CLOCK ON THE WALL. PATIENT ABLE TO BE REDIRECTED BUT FOR A VERY SHORT PERIOD ONLY. RENDERED RE ORIENTATION AND FURTHER VERBALIZATION OF FEELINGS. ON O2 THERAPY AT 2LPM. AFIB ON MONITOR WITH HR ERRATIC FROM CONTROLLED OF 80'S-90'S TO LOW 100'S WITH NOTED LBBB. NO COMPLAINTS OF PAIN AT THIS TIME. IV ACCESS ON LEFT AC AND LEFT FOREARM, PATENT AND INTACT, IVF ORDERED. FC INTACT, TO A CLOSED SYSTEM VIA GRAVITY WITH CLEAR YELLOW URINE. SAFETY MEASURES ENSURED. ASPIRATION PREC OBSERVED AT ALL TIMES. CONTINUOUSLY MONITORED.
[2017-02-25] MEDS ORDERED: SIMVASTATIN 20 MG TABLET PO SCH (22:00)
[2017-02-25] MEDS: SENNOSIDES 8.6 MG TABLET PO SCH (22:07)
[2017-02-25] MEDS: QUETIAPINE FUMARATE 25 MG TABLET PO SCH (22:07)
[2017-02-26] VITALS (19 sets, daily range): BP systolic 111–151; BP diastolic 44–105
--- NOTE | 2017-02-26 01:10 | NUR ---
RN NOTES: PATIENT COMPLAINING OF PAIN ON LEFT SHOULDER. PATIENT CONTINUES TO MOAN AND SCREAM INTERMITTENTLY, AND IS HARD TO CONSOLE AND BE REDIRECTED. (GIVEN HISTORY OF PSYCHIATRIC ISSUES). NORCO PO GIVEN PRN. ASPIRATION PRECAUTIONS OBSERVED AT ALL TIMES. MONITORED ACCORDINGLY FOR RESPONSE TO PAIN MEDS. DANTE THORNTON IN, S/E PATIENT. DISCONTINUED ZOSYN IV. NOTED AND CARRIED OUT.
[2017-02-26 04:42] LABS: EOSINOPHILS % (AUTO) 0.1 % (0.0-6.0); HEMATOCRIT 26 % (33-45); HEMOGLOBIN 8.5 g/dL (11.5-14.8); LYMPHOCYTES # (AUTO) 1.7 /CMM (0.8-4.8); LYMPHOCYTES % (AUTO) 5.7 % (20.0-44.0); MEAN CORPUSCULAR HEMOGLOBIN 30 PG (26.0-33.0); MEAN CORPUSCULAR HGB CONC 33 g/dl (31.0-36.0); MEAN CORPUSCULAR VOLUME 91 fL (82-100); MONOCYTES # (AUTO) 2.2 /CMM (0.1-1.30); NEUTROPHILS # (AUTO) 26.8 /CMM (1.8-8.9); NEUTROPHILS % (AUTO) 87.2 % (43.0-81.0); PLATELET COUNT (AUTO) 323 /CMM (150-450); RDW COEFFICIENT OF VARIATION 14.9 (11.5-15.0); RED BLOOD CELL COUNT(AUTO) 2.86 MIL/uL (4.0-5.2)
[2017-02-26 04:56] LABS: CALCIUM, SERUM 8.6 mg/dL (8.5-10.1); CARBON DIOXIDE 24 mmol/L (21-32); CHLORIDE 109 mmol/L (98-107); CREATININE 1.2 mg/dL (0.6-1.3); GLUCOSE 83 mg/dL (74-106); MAGNESIUM 1.8 mg/dL (1.8-2.4); PHOSPHORUS 3.3 mg/dL (2.5-4.9); POTASSIUM 3.5 mmol/L (3.5-5.1); SODIUM SERUM 144 mmol/L (136-145); UREA NITROGEN, BLOOD 28 mg/dL (7-18)
[2017-02-26 05:13] LABS: WHITE BLOOD COUNT (AUTO) 30.7 K/uL (4.3-11.0)
[2017-02-26 05:42] LABS: BAND % (MANUAL) 8 % (0.0-5.0); EOSINOPHILS % (MANUAL) 1 % (0-4); LYMPHOCYTES % (MANUAL) 2 % (16-48); METAMYELOCYTES % 2 % (0-0); MONOCYTES % (MANUAL) 10 % (0-11.0); MYELOCYTES % 2 % (0-0); NEUTROPHILS % (MANUAL) 75 (42-76)
--- NOTE | 2017-02-26 06:39 | NUR ---
RN CLOSING NOTES; PATIENT REMAINED STABLE ON BED; NO DECLINE IN MENTAL STATUS NOTED. KEPT ON O2 THERAPY. AM LABS IN, WBC TRENDING DOWN. SAFETY MEASURES ENSURED. SKIN CARE AND REPOSITIONING RENDERED. CONTINUOUSLY MONITORED. TO ENDORSE TO AM SHIFT RN.
[2017-02-26] MEDS: VANCOMYCIN 1 GM in IV D5W 250 ML IV SCH (07:39)
[2017-02-26] MEDS: LEVOTHYROXINE SODIUM 25 MCG TABLET PO SCH (07:40)
[2017-02-26] MEDS: PANTOPRAZOLE 40 MG TABLET.DR PO SCH (07:40)
--- NOTE | 2017-02-26 07:45 | NUR ---
ICU/RN: PT RECEIVED IN BED, SMILING, A&OX1 PLEASANTLY CONFUSED, ABLE TO FOLLOW SIMPLE COMMANDS. NO DISTRESS NOTED, BREATHING EVEN AND UNLABORED, TITRATED O2 TO 4L/MIN VIA NC, RHONCHI NOTED THROUGHOUT LUNGS, PT WITH NON-PRODUCTIVE, WET COUGH. IVF INFUSING WELL, FC DRAINING TO GRAVITY. WILL CONT TO MONITOR PT STATUS.
[2017-02-26] MEDS: POLYVINYL ALCOHOL 15 ML BOTTLE EACHEYE SCH ×2 (08:01→17:27)
[2017-02-26] MEDS: FLUTICASONE PROPIONATE 16 GM BOTTLE NS SCH (08:01)
[2017-02-26] MEDS: FLUTICASONE/VILANTEROL 1 EACH BLST.W.DEV IH SCH (08:01)
[2017-02-26] MEDS: DIVALPROEX SODIUM 250 MG TABLET.DR PO SCH ×3 (08:01→17:27)
[2017-02-26] MEDS: CALCIUM CARB 600MG /VIT D 1 EACH TABLET PO SCH (08:01)
[2017-02-26] MEDS: ASCORBIC ACID 500 MG TABLET PO SCH (08:01)
[2017-02-26] MEDS: POTASSIUM CHLORIDE 10 MEQ TABLET.SA PO SCH (08:02)
[2017-02-26] MEDS: DOCUSATE SODIUM 100 MG CAPSULE PO SCH ×2 (08:02→17:27)
[2017-02-26] MEDS: METOPROLOL TARTRATE 50 MG TABLET PO SCH ×2 (08:07→21:22)
[2017-02-26] MEDS: MIDODRINE HCL (5MG) 5 MG TABLET PO SCH ×2 (08:07→17:00)
[2017-02-26] MEDS: MULTIVIT, IRON, MIN NO. 8, FA 1 TAB PO SCH (08:07)
[2017-02-26] MEDS: LORATADINE 10 MG TABLET PO SCH (08:07)
[2017-02-26] MEDS ORDERED: CEFEPIME 1 GM in IV D5W 50 ML IV SCH (09:00)
[2017-02-26] MEDS ORDERED: CEFEPIME 1 GM VIAL IM SCH (09:00)
--- NOTE | 2017-02-26 09:00 | NUR ---
ICU/RN: PT NOTED TO BE INCREASINGLY AGITATED, RESTLESS, DISORGANIZED AND DISORIENTED WITH VISUAL HALLUCINATIONS STATING "I WANT TO SLEEP WITH THAT MAN" WHILE POINTING TO WALL. PT THEN STATES "I WANT TO RIGHT NOW, IS THAT A CASKET? I WANT TO GET IN." DR NESBITT PAGED. AWAITING CALL BACK.
[2017-02-26] MEDS: LORAZEPAM 0.5 MG TABLET PO PRN ×2 (09:30→18:00)
[2017-02-26] MEDS ORDERED: QUETIAPINE FUMARATE 25 MG TABLET PO SCH (10:30)
[2017-02-26] MEDS: IV NS 0.9% 1,000 ML IV PRN (11:34)
[2017-02-26] MEDS: ENOXAPARIN SODIUM 40 MG/0.4 ML DISP.SYRIN SQ SCH (11:37)
[2017-02-26] MEDS ORDERED: DIGOXIN INJ 0.5 MG/2 ML AMPUL IV SCH (13:00)
--- NOTE | 2017-02-26 13:45 | NUR ---
ICU/RN: DR SOTO AT BEDSIDE; UPDATED ON PT STATUS.
[2017-02-26] MEDS: MEROPENEM 1 G in IV NS 0.9% 100 ML IV SCH (13:51)
[2017-02-26] MEDS: BOOST PLUS FOOD-CHOCLATE 237 ML BOX PO SCH ×2 (14:08→17:00)
--- NOTE | 2017-02-26 14:10 | NUR ---
ICU/RN: PT NOTED WITH NON-PRODUCTIVE COUGH. DEEP SUCTIONED BY RT; THICK YELLOW SECRETIONS NOTED. REMAINS ON O2 4L/MIN VIA NC
--- NOTE | 2017-02-26 16:30 | NUR ---
ICU/RN: PT TRANSFERRED TO [facility] 115-2 VIA ACLS PROTOCOL. NO DISTRESS NOTED, BREATHING EVEN AND UNLABORED. BEDSIDE CARE ENDORSED TO KELIN LANCE.
--- NOTE | 2017-02-26 17:00 | NUR ---
[facility] RN NOTES: REC'D PT FROM CARPET CLEANER ARLENE VIA BED. PT ON O2 AT 4LPM/NC, NOTED SHALLOW BREATHING, WITH PRODUCTIVE COUGH BUT UNABLE TO EXPECTORATE, SATURATING AT 98%. PT IS A/O X1, AGITATED. ON TELEMONITOR, SR W/ 1`AVB, BBB, AND OCCASIONAL PVC, HR 76. HAVE 2 IV LINE ACCESS, FLUSHED, BOTH PATENT & INTACT W/ NO S/SX OF INFECTION/ INFILTRATION NOTED: RAC G18, SL AND RFA G22, NS X 100 CC/HR INFUSING WELL. HAS FC PATENT & INTACT DRAINING TO ADEQUATE URINE OUTPUT. STAT ABG ORDERED D/T LABORED BREATHING AND VERBALIZATION OF SOB. NEBULIZATION AND SUCTIONING DONE BY RT. [facility] MEDS GIVEN WELL. DR. ROBLES UPDATED PT'S CONDITION WITH ORDERS TO DO STAT CXR AND HOLD CURRENT IV FLUIDS. KEPT WELL RESTED. BED KEPT LOW & IN LOCKED POS. CALL LIGHT PLACED W/IN REACH. ENDORSED TO PM RN FOR KRYSTA.
[2017-02-26] MEDS: LACTOBACILLUS RHAMNOSUS GG 1 EACH CAP.SPRINK PO SCH (17:25)
[2017-02-26] MEDS: QUETIAPINE FUMARATE 25 MG TABLET PO SCH ×2 (17:25→21:25)
[2017-02-26 17:40] LABS: ABG BASE EXCESS -5.4 mmol/L; ABG OXYGEN SATURATION 94.9 % (92.0-98.5); ABG PCO2 40.1 mmHg (35.0-45.0); ABG PH 7.321 (7.350-7.450); ABG PO2 82.1 mmHg (75.0-100.0); AaDO2 135.3 mmHg; COHb 0.9 % (0.5-1.5); O2Hb 93.1 % (94.0-97.0); SITE, ABG Right Brachial; VENT MODE, BG NASAL CANNULA
[2017-02-26] MEDS: ACETYLCYSTEINE 10% SOLN 400 MG/4 ML VIAL NEB SCH ×2 (19:28→23:32)
--- NOTE | 2017-02-26 20:00 | NUR ---
[facility] RN NOTES RECEIVED PTS ON BED AWAKE ALERT AND VERBALLY RESPONSIVE , ON TELE SR , BBB ON THE MONITOR , ON O2 AT 4 LITERS VIA NASAL CANNULA .SATING 92% HOB ELEVATED FOR ASPIRATION PRECAUTION .PTS NOTED CONGESTED RT AT BEDSIDE SATING 86-88% DEEP SUCTIONING DONE .O2 SAT GOES UP TO 95-96% ALL DUE MEDS GIVEN ORDERED CALL LIGHT WITHIN REACH , V/S STABLE AFEBRILE, WILL CONTINUE TO MONITOR PTS.
[2017-02-26] MEDS: SENNOSIDES 8.6 MG TABLET PO SCH (21:23)
[2017-02-26] MEDS: LEVOFLOXACIN 750 MG /D5W 150ML 750 MG in PREMIX 1 EA IV SCH (21:28)
[2017-02-27] VITALS: BP 121/65
[2017-02-27] MEDS: MEROPENEM 1 G in IV NS 0.9% 100 ML IV SCH ×2 (00:56→12:16)
[2017-02-27] MEDS: VANCOMYCIN 0.75 GM in IV D5W 250 ML IV SCH ×2 (01:51→20:08)
--- NOTE | 2017-02-27 02:00 | NUR ---
[facility] RN NOTES PTS NOTED CONGESTED AND DESATURATION 86-88% DEEP SUCTIONING DONE BY RT, PUT PTS ON NON REBREATHER MASK , PTS IS NON COMPLIANT TO CARE, PULLING OUT NASAL CANNULA , MONITOR PTS T BEDSIDE , 02 SAT CAme back to 96% again put back to nasal canula with 4liters of 02. monitor pts at bedside.v/s stable afebrile.
[2017-02-27 04:00] VITALS: BP 124/74
--- NOTE | 2017-02-27 06:20 | NUR ---
lisa rn notes another episode of desaturation ,on the 80%no wheesing noted , hob elevated at all times ,again put pts on non rebreather mask with 10 liters of o2 , pts is dnr dni , spoke to stefania pelayo aware of pts condition , relayed xray result last nite , with order to do repeat chest xray, continue on non rebreather mask ,o2 saturation at this time 93-94% pts is alert and responsive , will endorse to rn day shift for continuity of care , bilateral mittens applied to prevent pulling of o2 tubings.
--- NOTE | 2017-02-27 07:15 | NUR ---
[facility] RN INITIAL NOTES: REC'D PT AWAKE ON BED, A/OX1, CONFUSED, AGITATED. PT ON NO REBREATHER MASK O2 AT 15LPM, SATURATING AT 100% BUT STILL NOTED LABORED BREATHING. RT AT BEDSIDE, BREATHING TX PROVIDED AND SUCTIONED SMALL THICK SECRETIONS NASOPHARYNGEALLY. ON TELEMONITOR, SR/BBB. HAS 2 IV ACCESS - RAC G18 AND RFA G22, BOTH FLUSHED, PATENT & INTACT W/ NO S/SX OF INFECTION OR INFILTRATION. ON BILATERAL MITTENS BUT STILL ABLE TO REMOVE NONREBREATHER MASK. CHANGED TO SOFT BILATERAL WRIST RESTRAINTS TO PREVENT DISRUPTION OF CARE. HAS FC PATENT & INTACT DRAINING TO ADEQUATE URINE OUTPUT. PROVIDED COMFORT & SAFETY MEASURES. CALL LIGHT PLACED W/IN REACH. BED KEPT LOW & IN LOCKED POS. WILL CONTINUE TO MONITOR.
[2017-02-27] MEDS: ACETYLCYSTEINE 10% SOLN 400 MG/4 ML VIAL NEB SCH ×3 (07:36→23:49)
[2017-02-27 07:52] LABS: BASOPHILS % (AUTO) 0.1 % (0.0-2.0); EOSINOPHILS % (AUTO) 0.1 % (0.0-6.0); HEMATOCRIT 28 % (33-45); HEMOGLOBIN 9.2 g/dL (11.5-14.8); LYMPHOCYTES # (AUTO) 1.6 /CMM (0.8-4.8); LYMPHOCYTES % (AUTO) 4.1 % (20.0-44.0); MEAN CORPUSCULAR HEMOGLOBIN 30 PG (26.0-33.0); MEAN CORPUSCULAR HGB CONC 33 g/dl (31.0-36.0); MEAN CORPUSCULAR VOLUME 92 fL (82-100); MONOCYTES % (AUTO) 4.9 % (2.0-12.0); NEUTROPHILS # (AUTO) 36.2 /CMM (1.8-8.9); NEUTROPHILS % (AUTO) 90.8 % (43.0-81.0); PLATELET COUNT (AUTO) 383 /CMM (150-450); RDW COEFFICIENT OF VARIATION 15.7 (11.5-15.0); RED BLOOD CELL COUNT(AUTO) 3.07 MIL/uL (4.0-5.2)
[2017-02-27 07:57] LABS: WHITE BLOOD COUNT (AUTO) 39.9 K/uL (4.3-11.0)
[2017-02-27 08:00] VITALS: BP 125/79
[2017-02-27 08:08] LABS: CALCIUM, SERUM 9.9 mg/dL (8.5-10.1); CARBON DIOXIDE 23 mmol/L (21-32); CHLORIDE 111 mmol/L (98-107); CREATININE 1.2 mg/dL (0.6-1.3); GLUCOSE 80 mg/dL (74-106); POTASSIUM 3.7 mmol/L (3.5-5.1); SODIUM SERUM 144 mmol/L (136-145); UREA NITROGEN, BLOOD 24 mg/dL (7-18)
[2017-02-27] MEDS: LORAZEPAM 0.5 MG TABLET PO PRN (08:50)
[2017-02-27] MEDS: DOCUSATE SODIUM 100 MG CAPSULE PO SCH ×2 (08:50→17:21)
[2017-02-27] MEDS: CALCIUM CARB 600MG /VIT D 1 EACH TABLET PO SCH (08:51)
[2017-02-27] MEDS: LORATADINE 10 MG TABLET PO SCH (08:51)
[2017-02-27] MEDS: POTASSIUM CHLORIDE 10 MEQ TABLET.SA PO SCH (08:51)
[2017-02-27] MEDS: MULTIVIT, IRON, MIN NO. 8, FA 1 TAB PO SCH (08:51)
[2017-02-27] MEDS: LEVOTHYROXINE SODIUM 25 MCG TABLET PO SCH (08:51)
[2017-02-27] MEDS: PANTOPRAZOLE 40 MG TABLET.DR PO SCH (08:51)
[2017-02-27] MEDS: DIVALPROEX SODIUM 250 MG TABLET.DR PO SCH ×3 (08:51→21:59)
[2017-02-27] MEDS: LACTOBACILLUS RHAMNOSUS GG 1 EACH CAP.SPRINK PO SCH ×2 (08:51→17:21)
[2017-02-27] MEDS: ASCORBIC ACID 500 MG TABLET PO SCH (08:51)
[2017-02-27] MEDS: FLUTICASONE PROPIONATE 16 GM BOTTLE NS SCH (08:52)
[2017-02-27] MEDS: FLUTICASONE/VILANTEROL 1 EACH BLST.W.DEV IH SCH (08:52)
[2017-02-27] MEDS: QUETIAPINE FUMARATE 25 MG TABLET PO SCH ×2 (08:52→12:16)
[2017-02-27] MEDS: POLYVINYL ALCOHOL 15 ML BOTTLE EACHEYE SCH ×2 (08:53→17:21)
[2017-02-27] MEDS: BOOST PLUS FOOD-CHOCLATE 237 ML BOX PO SCH ×3 (08:53→17:00)
[2017-02-27] MEDS: METOPROLOL TARTRATE 50 MG TABLET PO SCH ×2 (08:54→22:01)
[2017-02-27] MEDS: MIDODRINE HCL (5MG) 5 MG TABLET PO SCH ×2 (08:54→17:00)
[2017-02-27] MEDS: Z GUARD REMEDY 2 OZ OINT TP PRN (08:55)
--- NOTE | 2017-02-27 09:00 | NUR ---
RN NOTES: INCREASING WBC 39.9 & CXR THIS AM RESULT RELAYED TO DR. ROBLES. ALSO UPDATED MD REGARDING PT'S CURRENT CONDITION - STILL ON LABORED BREATHING WHILE ON NON REBREATHER MASK 15LPM. MD TO SEE PT AND W/ ORDERS TO DO STOOL FOR C.DIFF IF NOT YET DONE. MD MADE AWARE THAT PT DOESN'T HAVE ANY EPISODE OF LOOSE BM.
[2017-02-27 09:36] LABS: BAND % (MANUAL) 12 % (0.0-5.0); LYMPHOCYTES % (MANUAL) 9 % (16-48); METAMYELOCYTES % 1 % (0-0); MONOCYTES % (MANUAL) 13 % (0-11.0); NEUTROPHILS % (MANUAL) 65 (42-76)
--- NOTE | 2017-02-27 10:31 | NUR ---
RN NOTES: PT SEEN & EXAMINED BY DR. MARGARET Nava/ ORDERS FOR PULMO CONSULT - DR. HERNANDEZ (ALREADY INFORMED).
--- NOTE | 2017-02-27 10:45 | NUR ---
RN NOTES: PT SEEN & EXAMINED BY DR. HERNANDEZ W/ NO NEW ORDER NOTED. PER RT WHO UPDATED DR. HERNANDEZ, NO NEED FOR BIPAP, JUST CONTINUE NON REBREATHER MASK 15LPM, SUCTION NEEDED.
[2017-02-27] MEDS ORDERED: IV D5W 1,000 ML IV PRN (11:00)
[2017-02-27] MEDS: methylPREDNISolone SOD SUCC 125 MG/2ML VIAL IV SCH ×2 (11:39→21:58)
--- NOTE | 2017-02-27 11:50 | NUR ---
RN NOTES: LEFT VM TO TEX (DPOA) TO VERIFY IF PT IS ALLERGIC TO MORPHINE. AWAITING CALL BACK. Addendum: 02/27/17 at 1258 by CASI RAMÍREZ RN ADDENDUM: INFORMED JOE FROM PHARMACY THAT UNABLE TO REACH FAMILY TO VERIFY ALLERGY TO MORPHINE. PER JOE, OKAY TO GIVE MORPHINE IV PER DR. HERNANDEZ.
[2017-02-27 12:00] VITALS: BP 130/71
[2017-02-27] MEDS: MORPHINE SULFATE INJ 2 MG/ML DISP.SYRIN IV PRN (12:17)
--- NOTE | 2017-02-27 12:30 | NUR ---
RN NOTES: PT SEEN & EXAMINED BY DR. DELACRUZ. AGREED TO CHANGE ATIVAN 0.5MG IV PRN Q8H.
[2017-02-27] MEDS ORDERED: OLANZAPINE 5 MG/TAB.RAPDIS PO PRN (13:30)
[2017-02-27 16:00] VITALS: BP 132/61
--- NOTE | 2017-02-27 16:00 | NUR ---
RN NOTES: PT SEEN & EXAMINED BY DR. LARKIN W/ NEW ORDERS & CARRIED OUT.
[2017-02-27] MEDS ORDERED: FUROSEMIDE 20 MG/2 ML VIAL IV ONE (16:30)
[2017-02-27] MEDS: OLANZAPINE 5 MG/TAB.RAPDIS PO SCH (17:21)
--- NOTE | 2017-02-27 19:00 | NUR ---
[facility] RN CLOSING NOTES: PT STILL NOTED EPISODE OF LABORED BREATHING WHILE ON NON REBREATHER MASK O2 AT 15LPM, SATURATING AT 98%. SUCTIONED THICK SECRETION C/O RT. ON TELEMONITOR, STILL SR/BBB. 2 IV ACCESS - RAC G18 AND RFA G22 (ON D5W X 75CC/HR), KEPT PATENT & INTACT W/ NO S/SX OF INFECTION OR INFILTRATION. KEPT ON BILATERAL SOFT WRIST RESTRAINTS, CHECKED CIRCULATION EVERY15 MINS. FC KEPT PATENT & INTACT DRAINING TO ADEQUATE URINE OUTPUT. DR. ROBLES AWARE THAT PT HAS POOR PO INTAKE. KEPT WELL RESTED. NEEDS ATTENDED. MAINTAINED HOB AT 35`. CALL LIGHT PLACED W/IN REACH. BED KEPT LOW & IN LOCKED POS. ENDORSED TO PM RN FOR KRYSTA.
[2017-02-27 20:00] VITALS: BP 114/74
[2017-02-27] MEDS: SENNOSIDES 8.6 MG TABLET PO SCH (22:00)
--- NOTE | 2017-02-27 22:00 | NUR ---
SUPERINTENDENT WAREHOUSE DF PT RECEIVED WITH LEAKING IV,S TO RIGHT FOREARM/RIGHT AC. RIGHT FOREARM IV REMOVED TIP IN TACT SITE BENIGN. IV ACCESS PLACED TO RIGHT WRIST 22 G. PT RESTLESS, UNCOOPERATIVE WHEN UNRESTRAINED PT IS REMOVING NON REBREATHER MASK DESATURATES TO 75%.JOLIE WRIST RESTRAINTS IN PLACE FOR SAFETY. PT CODE STATUS.DNR/DNI. PT WITH PULMONARY CONGESTION WITH WEAK COUGH REFLEX NT SUCTIONING PROVIDED BY RT ANA. VSS.NAD NOTED.
[2017-02-27] MEDS: ENOXAPARIN SODIUM 40 MG/0.4 ML DISP.SYRIN SQ SCH (22:02)
[2017-02-28] VITALS: BP 119/55
[2017-02-28] MEDS: MEROPENEM 1 G in IV NS 0.9% 100 ML IV SCH (00:58)
[2017-02-28 04:00] VITALS: BP 104/52
[2017-02-28 07:18] LABS: BASOPHILS % (AUTO) 0.1 % (0.0-2.0); HEMATOCRIT 31 % (33-45); HEMOGLOBIN 9.9 g/dL (11.5-14.8); LYMPHOCYTES # (AUTO) 2.3 /CMM (0.8-4.8); LYMPHOCYTES % (AUTO) 6.2 % (20.0-44.0); MEAN CORPUSCULAR HEMOGLOBIN 30 PG (26.0-33.0); MEAN CORPUSCULAR HGB CONC 32 g/dl (31.0-36.0); MEAN CORPUSCULAR VOLUME 92 fL (82-100); MONOCYTES % (AUTO) 5.2 % (2.0-12.0); NEUTROPHILS # (AUTO) 33.6 /CMM (1.8-8.9); NEUTROPHILS % (AUTO) 88.5 % (43.0-81.0); PLATELET COUNT (AUTO) 161 /CMM (150-450); RDW COEFFICIENT OF VARIATION 15.7 (11.5-15.0); RED BLOOD CELL COUNT(AUTO) 3.33 MIL/uL (4.0-5.2)
[2017-02-28 07:24] LABS: CALCIUM, SERUM 9.8 mg/dL (8.5-10.1); CARBON DIOXIDE 26 mmol/L (21-32); CHLORIDE 111 mmol/L (98-107); CREATININE 1.2 mg/dL (0.6-1.3); GLUCOSE 127 mg/dL (74-106); MAGNESIUM 2.1 mg/dL (1.8-2.4); PHOSPHORUS 4.1 mg/dL (2.5-4.9); POTASSIUM 4.2 mmol/L (3.5-5.1); SODIUM SERUM 144 mmol/L (136-145); UREA NITROGEN, BLOOD 26 mg/dL (7-18)
[2017-02-28] MEDS: ACETYLCYSTEINE 10% SOLN 400 MG/4 ML VIAL NEB SCH (07:28)
[2017-02-28] MEDS: LEVOTHYROXINE SODIUM 25 MCG TABLET PO SCH (07:30)
[2017-02-28] MEDS: PANTOPRAZOLE 40 MG TABLET.DR PO SCH (07:30)
--- NOTE | 2017-02-28 07:38 | NUR ---
RN NOTES RECEIVED PT LAYING IN BED, APPEARS DROWSY, RESPONSIVE TO VERBAL AND TACTILE STIMULI. ON NON-REBREATHER MASK @15LPM VIA NC. A FIB ON TELE MONITOR HR 88. ONGOING IVF D5W@75ML/HR INFUSING ON R HAND. NOTED WITH BILATERAL SOFT WRIST RESTRAINTS, RELEASED AND CHECKED FOR CIRCULATION. FC PATENT DRAINING YELLOW COLOR URINE CONNECTED TO DRAINAGE BAG. REPOSITIONED FOR COMFORT, SAFETY MAINTAINED. CALL LIGHT WITHIN REACH WILL CONT TO MONITOR.
[2017-02-28 08:00] VITALS: BP 101/78
[2017-02-28 08:19] LABS: BAND % (MANUAL) 26 % (0.0-5.0); LYMPHOCYTES % (MANUAL) 8 % (16-48); MONOCYTES % (MANUAL) 9 % (0-11.0); NEUTROPHILS % (MANUAL) 57 (42-76)
[2017-02-28] MEDS: methylPREDNISolone SOD SUCC 125 MG/2ML VIAL IV SCH (08:52)
[2017-02-28] MEDS: MORPHINE SULFATE INJ 2 MG/ML DISP.SYRIN IV PRN ×2 (08:52→18:17)
[2017-02-28] MEDS: METOPROLOL TARTRATE 50 MG TABLET PO SCH (09:00)
[2017-02-28] MEDS: POTASSIUM CHLORIDE 10 MEQ TABLET.SA PO SCH (09:00)
[2017-02-28] MEDS: BOOST PLUS FOOD-CHOCLATE 237 ML BOX PO SCH (09:00)
[2017-02-28] MEDS: OLANZAPINE 5 MG/TAB.RAPDIS PO SCH (09:00)
[2017-02-28] MEDS: MULTIVIT, IRON, MIN NO. 8, FA 1 TAB PO SCH (09:00)
[2017-02-28] MEDS: LORATADINE 10 MG TABLET PO SCH (09:00)
[2017-02-28] MEDS: DOCUSATE SODIUM 100 MG CAPSULE PO SCH (09:00)
[2017-02-28] MEDS: LACTOBACILLUS RHAMNOSUS GG 1 EACH CAP.SPRINK PO SCH (09:00)
[2017-02-28] MEDS: ASCORBIC ACID 500 MG TABLET PO SCH (09:00)
[2017-02-28] MEDS: DIVALPROEX SODIUM 250 MG TABLET.DR PO SCH (09:00)
[2017-02-28] MEDS: CALCIUM CARB 600MG /VIT D 1 EACH TABLET PO SCH (09:00)
[2017-02-28] MEDS: MIDODRINE HCL (5MG) 5 MG TABLET PO SCH (09:00)
[2017-02-28] MEDS: LORAZEPAM INJ 2 MG/ML VIAL IV PRN (09:48)
--- NOTE | 2017-02-28 11:07 | NUR ---
RN NOTES SPOKE WITH DR FRIEDMAN, PT UPDATES GIVEN, PER MD HE WILL ORDER LASIX AND CXR, AND DC IVF.
[2017-02-28] MEDS ORDERED: FUROSEMIDE 40 MG/4 ML VIAL IV SCH ×2 (11:30)
[2017-02-28] MEDS: FLUTICASONE PROPIONATE 16 GM BOTTLE NS SCH (11:44)
[2017-02-28] MEDS: POLYVINYL ALCOHOL 15 ML BOTTLE EACHEYE SCH (11:44)
[2017-02-28 12:00] VITALS: BP 82/43
[2017-02-28 14:18] LABS: DIGOXIN 0.69 ng/mL (0.90-2.00)
[2017-02-28 16:00] VITALS: BP 96/54
--- NOTE | 2017-02-28 18:54 | NUR ---
RN NOTES PT LETHARGIC IN BED ON 15L NON-REBREATHER SATING WELL. MORPHINE GIVEN Q4 HRS, PT TOLERATED WELL. MS STATUS NOW COMFORT CARE PER MD. KEPT PT COMFORTABLE. PENDING HOSPICE EVAL. WILL ENDORSE TO NEXT SHIFT.
[2017-02-28 20:00] VITALS: BP 87/39
[2017-02-28] MEDS ORDERED: VANCOMYCIN 0.75 GM in IV D5W 250 ML IV SCH (20:00)
--- NOTE | 2017-02-28 20:00 | NUR ---
MS RN NOTE PT IN BED LETHARGIC, WITH LABORED BREATHING. ON 02 15L VIA NON REBREATHER MASK, O2 SAT 100%. KEPT HOB ELEVATED. ORAL CARE GIVEN. REPOSITION HER FOR COMFORT AND SKIN MANAGEMENT. MID LINE IN YAMIL AND SL IN RT WRIST INTACT AND PATENT. PT ON COMFORT CARE. NPO AND ASPIRATION PRECAUTIONS. SIDE RAILS UP X 3 AND CALL LIGHT WITHIN REACH. CONTINUE TO MONITOR HER.
[2017-03-01] MEDS: LORAZEPAM INJ 2 MG/ML VIAL IV PRN ×2 (03:24→12:14)
--- NOTE | 2017-03-01 03:30 | NUR ---
MS RN NOTE PT WOKE UP AND BECOME VERY RESTLESS, ATIVAN 0.5 MG IVP GIVEN. ALSO DC'D IV LINE AT RT WRIST DUE TO LEAKAGE. SECURED THE SITE WITH 2X2 GAUZE. CONTINUE TO MONITOR HER.
[2017-03-01 04:00] VITALS: BP 84/45
--- NOTE | 2017-03-01 04:02 | NUR ---
MS RN NOTE PT FALL BACK TO SLEEP, NO RESTLESS NOTED. MINOR LABORED BREATHING NOTED. REPOSITION HER Q2H. CONTINUE TO MONITOR HER.
--- NOTE | 2017-03-01 06:41 | NUR ---
MS RN NOTE PT IN BED LETHARGIC. REMAIN WITH LABORED BREATHING. MIDLINE YAMIL INTACT AND PATENT, NO S/S OF INFILTRATION NOTED. F/C INTACT AND PATENT DRAINING YELLOWISH COLOR URINE. SIDE RAILS UP X 2 AND CALL LIGHT WITHIN REACH. WILL ENDORSE TO DAY SHIFT NURSE FOR CONTINUE TO CARE.
[2017-03-01 07:32] LABS: CALCIUM, SERUM 9.9 mg/dL (8.5-10.1); CARBON DIOXIDE 27 mmol/L (21-32); CHLORIDE 112 mmol/L (98-107); CREATININE 1.2 mg/dL (0.6-1.3); GLUCOSE 95 mg/dL (74-106); POTASSIUM 3.6 mmol/L (3.5-5.1); SODIUM SERUM 147 mmol/L (136-145); UREA NITROGEN, BLOOD 31 mg/dL (7-18)
[2017-03-01] MEDS: MORPHINE SULFATE INJ 2 MG/ML DISP.SYRIN IV PRN (07:38)
--- NOTE | 2017-03-01 07:44 | NUR ---
MS RN INITIAL NOTE PT IN BED LETHARGIC WITH ANTIETY NOTED CURRENTLY TRYING TO TAKE OFF NON REBREATHER MASK , WITH LABORED BREATHING. ON 02 15L VIA NON REBREATHER MASK, O2 SAT 100%. KEPT HOB ELEVATED. ORAL CARE GIVEN. REPOSITION HER FOR COMFORT AND SKIN MANAGEMENT. MID LINE IN YAMIL INTACT AND PATENT. PT ON COMFORT CARE. NPO AND ASPIRATION PRECAUTIONS. SIDE RAILS UP X 3 AND CALL LIGHT WITHIN REACH. CONTINUE TO MONITOR PATIENT THROUGHOUT THE SHIFT .
[2017-03-01 08:00] VITALS: BP_SYST 140; BP_DIAS 23; BP_DIAS 73
--- NOTE | 2017-03-01 08:30 | NUR ---
RN NOTE PATIENT NOTED TO HAVE INCREASED ANXIETY AND AGONAL BREATHING , PT IS DNR DNI, GLASS CALIBRATOR APARNA NOTIFIED
[2017-03-01] MEDS ORDERED: ONDA4VIA30 IVP (13:16)
[2017-03-01] MEDS ORDERED: MORP15TA IV (13:16)
[2017-03-01] MEDS ORDERED: LORA1TAB82 IV (13:16)
[2017-03-01] MEDS ORDERED: ACET325T53 PO (13:16)
[2017-03-01 16:00] VITALS: BP 131/67
[2017-03-01] MEDS ORDERED: MORPHINE SULFATE INJ 4 MG/ML DISP.SYRIN IV PRN (16:00)
--- NOTE | 2017-03-01 17:20 | NUR ---
RN NOTE HOSPICE NURSE CAME TO EVALUATE THE PATIENT FOR CONTINUATION OF CARE. THE HOSPICE NURSE DETERMINE THAT THE PATIENT IS ACTIVELY AT THE END OF LIFE STAGE SHE HAS SUBMITTED A NOTE IN THE NAVAL SCIENCE TEACHER NOTIFIED ANIMAL LABORATORY HELPER AND AIRCRAFT SHEET METAL MECHANIC NOTIFIED. PT WHILE BE PLACE IN HOSPITAL HOSPICE
--- NOTE | 2017-03-01 18:12 | NUR ---
MS RN CLOSING NOTE PT IN BED LETHARGIC. AGONAL /LABORED BREATHING NOTED THROUGHOUT THE DAY . MIDLINE YAMIL INTACT AND PATENT, NO S/S OF INFILTRATION NOTED. F/C INTACT AND PATENT DRAINING YELLOWISH COLOR URINE. SIDE RAILS UP X 2 AND CALL LIGHT WITHIN REACH. WILL ENDORSE TO PM SHIFT MA FOR CONTINUE TO CARE.
[2017-03-01 19:59] VITALS: BP 108/60
--- NOTE | 2017-03-01 20:00 | NUR ---
MS RN NOTE PT IN BED LETHARGIC. WITH LABORED BREATHING NOTED. ON 15L NON RE-BREATHING MASK ON. KEPT HER HOB ELEVATED AND REPOSITION HER FOR COMFORT. NO S/S OF PAIN NOTED. MID LINE IN ESTELA INTACT AND PATENT. F/C INTACT AND PATENT DRAINING DARK YELLOWISH COLOR URINE. SIDE RAILS UP X 2 AND CALL LIGHT WITHIN REACH. CONTINUE TO MONITOR HER.
[2017-03-02 00:05] VITALS: BP 101/50
[2017-03-02 04:33] VITALS: BP 97/52
[2017-03-02 08:00] VITALS: BP 85/42
--- NOTE | 2017-03-02 08:00 | NUR ---
MS RN INITIAL NOTE PT IN BED OBTUNDED WITH LABORED BREATHING. ON 02 15L VIA NON REBREATHER MASK, O2 SAT 98 %. KEPT HOB ELEVATED 35 DEGREES. RN REPOSITION HER FOR COMFORT AND SKIN MANAGEMENT. MID LINE IN YAMIL INTACT AND PATENT. PT ON COMFORT CARE. NPO AND ASPIRATION PRECAUTIONS. SIDE RAILS UP X 3 AND CALL LIGHT WITHIN REACH. CONTINUE TO MONITOR PATIENT THROUGHOUT THE SHIFT .
[2017-03-02 08:09] LABS: CALCIUM, SERUM 9.9 mg/dL (8.5-10.1); CARBON DIOXIDE 28 mmol/L (21-32); CHLORIDE 115 mmol/L (98-107); CREATININE 2.2 mg/dL (0.6-1.3); GLUCOSE 103 mg/dL (74-106); POTASSIUM 4.7 mmol/L (3.5-5.1); SODIUM SERUM 150 mmol/L (136-145); UREA NITROGEN, BLOOD 42 mg/dL (7-18)
--- NOTE | 2017-03-02 08:45 | NUR ---
RN NOTE RN ADMINISTERED MORPHINE SULFATE FOR COMFORT MEASURES INCREASED IRRITABILITY OBSERVE.
--- NOTE | 2017-03-02 12:00 | NUR ---
RN NOTE PATIENT HAS SHALLOW BREATHING STILL ON FACE MASK , SATURATION WELL NO ANXIETY NOTED HOB ELEVATED AT 35 DEGREES
--- NOTE | 2017-03-02 15:56 | NUR ---
RN NOTE RN SPOKE WITH PATIENT DPOA Patric Palmer in regards to continuation of patient care , prognosis of patients condition. DPOA began asking question RN WAS UNABLE TO ANSWER SUCH WHY THE PATIENT WASN'T RECEIVING ANY NUTRITIONAL FEEDING, ANTIBIOTICS OR IV FLUIDS , CHARGE NURSE TORRIE WAS NOTIFIED TO SPEAK WITH THE PATIENTS DPOA IN REGARD TO THE PATIENTS CURRENT STATUS OF COMFORT CARE. AND RN INFORMED PATIENT DPOA THAT THE CHARGE NURSE OR SOMEONE FROM THE HOSPITAL WOULD BE CONTACTING HIM BACK. RN CONTACTED DR. BEEBE - THE ATTENDING FOR TODAY. MD CALLED RN BACK QUICKLY IN REGARDS TO THE PATIENT RN INFORMED THE MD ABOUT THE PATIENT AND THE DPOA'S REQUEST TO SPEAK WITH SOME ONE MD STATES HE WILL CONTINUE TO REVIEW THE PATIENTS CHART PRIOR TO CALLING THE DPOA , ALSO NOTIFIED THE RN TO CONTACT THE DENTAL INTERN FOR THIS PATIENT IN REGARDS TO THE COOLER WORKER IN WHICH THEY HAVE BEEN SPEAKING TO TO MAKE DECISIONS FOR THE PATIENTS CARE DPOA NAME/NUMBER : PATRIC PALMER [phone]
[2017-03-02 16:00] VITALS: BP_SYST 63; BP_DIAS 22; BP_DIAS 32
[2017-03-02] MEDS ORDERED: IV D5/0.45 NACL 1,000 ML IV PRN (17:30)
--- NOTE | 2017-03-02 17:38 | NUR ---
RN NOTE PATIENT HAS NOTED CYANOSIS OF THE FINGER TIPS AND TOES CHARGE NURSE TORRIE NOTIFIED, OXYGEN 90 PERCENT.
--- NOTE | 2017-03-02 17:40 | NUR ---
RN NOTE RN SPOKE WITH MD BEEBE IN REGARDS TO CONTINUATION OF CARE MD STATES HE HAS SPOKE WITH DPOA . PLAN IS TO RESTART ANTIBIOTICS, IV FLUIDS AND IV MEDICATIONS PATIENT IS TO REMAIN NPO DUE TO DECREASE LEVEL OF CONSCIOUSNESS AND ASPIRATION RISK
[2017-03-02] MEDS ORDERED: FEE PK DOSING 1 MIN EA MC ONE (17:56)
--- NOTE | 2017-03-02 18:22 | NUR ---
RN NOTE RN EXPERIENCED ISSUES WITH HANDHELD SCANNER , CHARGE NURSE TORRIE NOTIFIED 5 RIGHT OF MEDICATION COMPLETED AND VERIFIED . ALL NEED MET
--- NOTE | 2017-03-02 19:08 | NUR ---
MS RN CLOSING NOTE PT IN BED LETHARGIC, NONVERBAL UNRESPONSIVE TO TOUCH OR SOUND . AGONAL /LABORED BREATHING NOTED THROUGHOUT THE DAY . MIDLINE YAMIL INTACT AND PATENT, NO S/S OF INFILTRATION NOTED. IV FLUID HUNG AND RUNNING NO ISSUES NOTED F/C INTACT AND PATENT DRAINING YELLOWISH COLOR URINE. SIDE RAILS UP X 2 AND CALL LIGHT WITHIN REACH. WILL ENDORSE TO PM SHIFT FOR CONTINUE TO CARE.
--- NOTE | 2017-03-02 19:30 | NUR ---
MS RN INITIAL NOTE PT RECEIVED IN BED. UNRESPONSIVE TO VERBAL STIMULI. NOTED WITH AGONAL BREATHING ON 15L OF O2 ON NON-REBREATHER SATURATING AT 80%. PT HAD MOTTLED BILATERAL HANDS AND FEET. IV SITE YAMIL MIDLINE CLEAN AND INTACT WITH FLUIDS RUNNING. SANDOVAL CATHETER IN PLACE AND DRAINING BY GRAVITY CLEAR/ YELLOW URINE. WILL CONTINUE TO MONITOR.
[2017-03-02] MEDS ORDERED: VANCOMYCIN 0.75 GM in IV D5W 250 ML IV SCH (20:00)
--- NOTE | 2017-03-02 20:55 | NUR ---
MS RN NOTE IN THE ROOM WHEN PT TOOK LAST BREATH. NO PULSES NOTED UPON PALPATION. BREATHING CHECKED AND NO RISE AND FALL OF CHEST NOTED. INFORMED CHARGE NURSE. CHARGE NURSE IMMEDIATELY REASSESSED PT.
--- NOTE | 2017-03-02 20:57 | NUR ---
PHOEBE NOTES NOTIFIED BY PRIMARY RN THAT PT STOPPED BREATHING.PT IS A DNR/DNI.PUPILS FIXED AND DILATED.ABSENT RESPIRATIONS,NO PALPABLE PULSE,NO AUDIBLE HEART TONES.PRONOUNCED AT 2056.NOTIFIED ALL NECESSARY PERSONNEL AND M.D RE PT'S
[2017-03-02] MEDS ORDERED: MEROPENEM 1 G in IV NS 0.9% 100 ML IV SCH (21:00)
[2017-03-02] MEDS ORDERED: methylPREDNISolone SOD SUCC 125 MG/2ML VIAL IV SCH (21:00)
[2017-03-02] MEDS ORDERED: MEROPENEM 500 MG in IV NS 0.9% 50 ML IV SCH (21:00)
--- NOTE | 2017-03-02 21:40 | NUR ---
MS RN NOTE SPOKE WITH TEX (SARAH) AND INFORMED OF PT'S PASSING. CALLED [facility] TO REPORT PT'S PASSING WELL.
[2017-03-02] MEDS ORDERED: ACETYLCYSTEINE 10% SOLN 400 MG/4 ML VIAL NEB SCH (23:30)
[2017-03-03] MEDS ORDERED: FUROSEMIDE 20 MG/2 ML VIAL IV SCH (09:00)
== END 2017-03-02 23:55 | disposition expired | DRG 871 ==
LOC: ER 19:01 → TELE 21:03 → ICU 22:29 → TELE-TD 02-26 16:30 → MEDSG1 02-28 11:30
PROVIDERS: ADMIT Nurse Practitioner Acute Care; ATTEND Nurse Practitioner Acute Care
PROC: 05H533Z Insertion of Infusion Device into Right Subclavian Vein, Percutaneous Approach (ICD-10-PCS; principal; 2017-02-28)
DX: A41.9 Sepsis, unspecified organism (principal); E43 Unspecified severe protein-calorie malnutrition; J96.01 Acute respiratory failure with hypoxia; N17.0 Acute kidney failure with tubular necrosis; J69.0 Pneumonitis due to inhalation of food and vomit; R65.21 Severe sepsis with septic shock; I50.33 Acute on chronic diastolic (congestive) heart failure; G93.41 Metabolic encephalopathy; I13.0 Hypertensive heart and chronic kidney disease with heart failure and stage 1 through stage 4 chronic kidney disease, or unspecified chronic kidney disease; N39.0 Urinary tract infection, site not specified; J44.0 Chronic obstructive pulmonary disease with (acute) lower respiratory infection; Z51.5 Encounter for palliative care; F03.90 Unspecified dementia, unspecified severity, without behavioral disturbance, psychotic disturbance, mood disturbance, and anxiety; I48.91 Unspecified atrial fibrillation; E86.9 Volume depletion, unspecified; D63.8 Anemia in other chronic diseases classified elsewhere; B96.20 Unspecified Escherichia coli [E. coli] as the cause of diseases classified elsewhere; E78.5 Hyperlipidemia, unspecified; E03.9 Hypothyroidism, unspecified; N18.2 Chronic kidney disease, stage 2 (mild); K21.9 Gastro-esophageal reflux disease without esophagitis; Z66 Do not resuscitate; Z90.49 Acquired absence of other specified parts of digestive tract; Z79.899 Other long term (current) drug therapy; F41.9 Anxiety disorder, unspecified; F32.9 Major depressive disorder, single episode, unspecified; D72.825 Bandemia; E88.09 Other disorders of plasma-protein metabolism, not elsewhere classified; Z68.20 Body mass index [BMI] 20.0-20.9, adult; F29 Unspecified psychosis not due to a substance or known physiological condition; F39 Unspecified mood [affective] disorder; R53.1 Weakness; I44.7 Left bundle-branch block, unspecified; Z96.649 Presence of unspecified artificial hip joint
CPT/HCPCS: 31720; 36415; 36569; 36600; 71010-TC; 72128-TC; 80048-TC; 80061-TC; 80076-TC; 80162-TC; 80164-TC; 80202-TC; 81000-TC; 82803-TC; 82962-TC; 83605-TC; 83735-TC; 84100-TC; 84443-TC; 84484-TC; 85025-TC; 85730-TC; 87040-TC; 87081-TC; 87086-TC; 87186-TC; 93307-TC; 97001-TC; A4216; A4606; A6402; J0692; J1160; J1650; J1940; J1956; J2060; J2185; J2270; J2543; J2930; J3370; J3490; J7030; J7040; J7060; J7070; P9047; Z7610